=== PATIENT | female | born 1935 | race African-American/Black ===

== ENCOUNTER 2016-09-25 15:50 | Inpatient (IN) | payer OTHER ==
--- NOTE | ~2016-09-25 | DS ---
Unit #: [id number] #: [id number] Patient: STONE BOGGS [id number] [address] [place], [place] [address] [id number] I MR#: [id number] NAME: STONE BOGGS. ROOM: 474 Age: 81 Sex: F Admission Date: 09/25/2016 : 1935 Discharge Date: 10/13/2016 Attending Physician: Юлия Cleveland M.D. Primary Care Physician: Jonas Rodrigues M.D. DISCHARGE SUMMARY ADDENDUM Of note, since the last dictated addendum, the patient was denied rehab by her insurance and it was decided that the patient's denial was upheld by her insurance. Since that time, the patient's kidney functions have been fluctuating. Her creatinine have gone from 1.4 to the highest of that 2.8 with titration should improve. The patient does have diarrhea. I believe that this is due to the patient's recent colectomy possibly with the short gut symptom. At this time, we are treating the diarrhea symptomatically. C diff was checked, which was negative and she states that with Lomotil for symptomatic relief, she is able to tolerate the diarrhea much better. At this time, the patient's creatinine is 1.6. She is I believe medically stable. When the patient's family bought the insurance denial paper working. We came to find out the patient's entire hospitalization has been denied. Her acute hospitalization was denied by her insurance. When I had done, the physician on the insurance side told me that he had concerned that this is safe 81-year-old female, who was anemic and thought that the patient was not stable and she had symptoms of tiredness and shortness of breath and it was thought that may be the patient was not ready to be discharged home with home health. Of note, the patient's admitting hemoglobin was 5.4 which was critically low. We have worked this up with endoscopy which was negative and upper endoscopy, but declined. The patient had a colonic mass due to her severe anemia. 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 Also, there is focal hyperplastic mucosal change of the vermiform appendix and this final report will be attended by pathology when that is available. Dr. Fitzgerald of Oncology has seen the patient and states due to her advancing age, she can have it for any working needs, but he has no plans for chemotherapy at this time. Following the surgery, she has had extensive blood loss anemia resulting acute kidney injury. Nephrology has been following her with us. With IV fluid hydration and replacement of the anemia, her creatinine had improved. At this time, she also has ongoing diarrhea which again is negative for C diff. I believe that the patient has reached the maximal hospital benefit stay and she can be discharged home in stable condition. Follow up with primary care physician in next week to have repeat BMP done there to assess on her kidney function. She will follow up with [facility] in 10 to 14 days, follow up with Dr. Jalloh within 4 weeks, follow up with Dr. Fitzgerald in 3 to 4 weeks. She will have PNA to continue to work on her with PT/OT and Speech Therapy. DISCHARGE MEDICATIONS Unit #: [id number] #: [id number] Patient: STONE BOGGS Include sodium bicarbonate 1300 mg orally t.i.d. daily and given her prescription for two weeks. She is to stop the olmesartan and hydrochlorothiazide that she was using before. We have to change her antidepressant from sertraline to Cymbalta 30 mg orally daily. She can have Lomotil 5 mg orally for 4 days as needed for diarrhea, BuSpar 15 mg orally daily as needed, Tenormin 10 mg orally daily, lovastatin 20 mg orally at bedtime, clonidine 0.1 mg orally every 8 hours, hydralazine 100 mg orally every 8 hours, minoxidil 10 mg orally daily, Lantus 20 units subcutaneously at bedtime, NovoLog low-dose sliding scale prior to meals and at bedtime, Florastor 250 mg orally b.i.d., Tums 1000 mg t.i.d., folic acid 1 mg orally daily, calcitriol 0.25 mcg orally daily, vitamin D 2000 units orally daily. This dictation took 45 minutes include the patient's care, patient educated to her and her daughter, Ms. Shrestha as well as to coordinate care. Dictated by... Tejal Salter PA-C for Jimmy Donaldson/marcela TD: 10/14/2016 09:02 JOB #: [id number] DISCHARGE SUMMARY Page 1 of 1 X X DISCHARGE SUMMARY
--- NOTE | ~2016-09-25 | CR63 ---
[facility] A Service of [facility] RADIOLOGY TEXT RESULTS PATIENT: STONE BOGGS LOCATION: [facility] 474 : 37 UNIT #: [id number] AGE: [address]: Юлия Cleveland MD SEX: F ORDER DR: [id number] [facility] [address] [place], [place] [address] [id number] I MR#: [id number] Acc #: [id number] NAME: STONE BOGGS : 1935 SEX: F STUDY DATE/TIME: 10/13/2016 13:39 UNIT: [facility] ROOM: [facility] STUDY DESCRIPTION: CR Chest 2 View Attending Physician: Юлия Cleveland M.D. Ordering Physician: Юлия Cleveland M.D. Primary Care Physician: Jonas Rodrigues M.D. MEDICAL IMAGING REPORT This report is preliminary unless electronic signature is present EXAM Chest 2 views, 10/13/2016 1338 hours HISTORY Anemia with shortness of air since 09/25/2016. COMPARISON 10/10/2016 FINDINGS Upright PA and lateral views demonstrate moderate cardiac enlargement, unchanged. Tortuous aorta is stable. There is a fairly large right pleural effusion, unchanged. Lungs appear clear and there is no definite left effusion. IMPRESSION Stable cardiac enlargement and moderate size right pleural effusion. No appreciable change from 10/10/2016. Dictated by... Yulisa Calvillo M.D. THIS IS AN ELECTRONICALLY VERIFIED REPORT Yulisa Calvillo M.D. at 10/13/2016 6:55 PM MIKE/jose TD: 10/13/2016 17:57 JOB #: [id number] MEDICAL IMAGING REPORT COPY
--- NOTE | ~2016-09-25 | EKG ---
PATIENT: STONE BOGGS UNIT #: [id number] Ventricular Rate: 68 BPM Atrial Rate: 68 BPM P-R Interval: 150 ms QRS Duration: 86 ms Q-T Interval: 476 ms QTC Calculation(Bezet): 506 ms P [place]: 70 degrees Calculated R [place]: 34 degrees Calculated T [place]: 41 degrees Diagnosis Line: Normal sinus rhythm Diagnosis Line: Nonspecific T wave abnormality Diagnosis Line: Prolonged QT Diagnosis Line: Abnormal ECG Diagnosis Line: When compared with ECG of 17-JUN-2016 14:33, Diagnosis Line: T wave inversion less evident in Lateral leads Diagnosis Line: Confirmed by CYNTHIA MYLES MD ([id number]) on 09/27/2016 Diagnosis Line: 5:51:55 PM INTERPRETING MD: SHAMEKA STUBBS
--- NOTE | ~2016-09-25 | CO ---
Unit #: [id number] #: [id number] Patient: STONE TAVERAS [id number] [address] [place], [place] [address] [id number] I MR#: [id number] NAME: STONE TAVERAS ROOM: [facility] Age: 81 Sex: F Admission Date: 09/25/2016 : 1935 Attending Physician: Юлия Cleveland M.D. Primary Care Physician: Jonas Rodrigues M.D. Consultation Date: 09/26/2016 CONSULTATION REPORT PRIMARY CARE PHYSICIAN Jonas Rodrigues M.D. REASON FOR CONSULTATION Severe iron-deficiency anemia. HISTORY OF PRESENT ILLNESS Ms. Taveras is a very pleasant 81-year-old female. The patient was seen by Dr. Rodrigues recently and had presented with increasing fatigue, shortness of breath on exertion, and found to have a hemoglobin of 5.5, with iron indices compatible with severe iron deficiency. The patient denies any history of overt GI bleed in the form of hematemesis, melena, or hematochezia. She also denies taking frequent wbgb-fpj-bfvjjlu NSAIDs. PAST MEDICAL HISTORY Significant for history of restless legs syndrome, sleep apnea, and history of iron-deficiency anemia in the past. The only recent surgery is left elbow olecranon mass resection surgery. MEDICATIONS At home included aspirin, Tylenol, and an antacid pill for the stomach. ALLERGIES She has no known drug allergies. SOCIAL HISTORY Does not smoke or drink alcohol. Lives independently. She does not drive. Her daughter helps with the outdoor chores. FAMILY HISTORY None of colon, pancreatic cancer, or liver disease. REVIEW OF SYSTEMS Detailed review of organ systems does not reveal any recent weight loss. No history of fever, chills, or rigors. No history of headache, seizures, chest pain, or syncope. No history of cough, expectoration, or hemoptysis. There is history of shortness of breath on minimal exertion. No history of dysuria, hematuria, or pyuria. No history of focal seizures or extremity weakness. No history of overt GI bleed in the form of hematemesis, melena, or hematochezia. No history of skin rash, aphthous ulcer in the mouth, or reactive arthritis. Unit #: [id number] #: [id number] Patient: STONE TAVERAS PHYSICAL EXAMINATION GENERAL: She is alert and oriented, and appears comfortable. VITAL SIGNS: Stable with a temperature of 97.8, pulse is 63 per minute and regular, respirations 16, and blood pressure is 199/89. She weighs 160 pounds. Her baseline weight three years ago was 200 pounds. HEENT: She has moderate pallor. There being no icterus, lymphadenopathy, and grade 1 pitting peripheral edema. CARDIOVASCULAR: Normal heart sounds. No murmurs on auscultation. LUNGS: Reveal normal breath sounds. Good air entry. ABDOMEN: Soft and nontender. Liver and spleen are not palpable. Bowel sounds normal. DIAGNOSTIC STUDIES LABORATORY RESULTS: Shows a hemoglobin of 5.4 with the hypochromic microcytic red cell indices. White count is 3.8, platelet count is 178. Serum chemistry shows a BUN and creatinine of 25 and 1.3. Glucose of 108. Her iron studies indicate virtually no iron reserves, with iron and transferrin saturation in single digits and high TIBC. Ferritin is 12. CLINICAL IMPRESSION The patient with severe iron-deficiency anemia. The differential diagnosis includes angiodysplasias of the gastrointestinal tract, peptic ulcer disease, and colorectal neoplasia. An upper endoscopy and a colonoscopy is warranted to be scheduled later today after the prep. The pros and cons of procedure, potential risks, and complications were discussed with the patient and she was reassured. Thank you for asking me to see this pleasant woman. I appreciate the consult. Dictated by... Jimmy Wadsworth/marcela TD: 09/28/2016 14:42 JOB #: [id number] CC: Bri Santos M.D. CONSULTATION REPORT X Mitchell Castillo MD X CONSULTATION REPORT
--- NOTE | ~2016-09-25 | FU ---
[facility] Nutrition Therapy DATE: 10/13/16 Patient: STONE Hager AMBROSE Physician: RO Address: [address] [place] [address] Room/Bed: [address] [place] [address], Zip: [place] [address] Admit Date: 09/25/16 Date of : 37 Height: 5 5 Weight: 158 72 NUTRITION MONITORING/FOLLOW-UP: Reason: PT SEEN FOR FOLLOW-UP DX: ANEMIA, TRA Anthropometrics: 5'5", WT: 158# ( 72 KG) (09/29/16), BMI: 26.3 -ADMIT WEIGHT: 163# (74 KG) Labs: GLU: 147, BUN: 50, CREAT: 1.6, CA+:6.3, ALB: 3.1, M.2 (10/03/16), GFR: 40 Meds: TUMS, VITAMIN D, LEVEMIR, NOVOLOG, KCL, ZOFRAN, FOLIC ACID, LIPITOR I&O's: 2065/1601, 1 BM NOTED Skin: NO ISSUES NOTED EDEMA: BLE TRACE EDEMA Estimated Nutrition Needs: INCREASED NUTRIENT NEEDS Assessment: CHART REVIEWED AND EVENNTS NOTED. PT SEEN FOR FOLLOW-UP. PT OUT OF ROOM FOR X-RAY PROCEDURE AT TIME OF VISIT. FAMILY IN ROOM REPORT PT'S APPETITE "COMES AND GOES", FAIR PO INTAKE, NOTING NO C/O N/V/D. FAMILY REPORTS PT TO HAVE INTERMITTENT DYSPHAGIA. FAMILY ADDS THAT PT DRINKS GLUCERNA SHAKES + ENJOYS THE MAGIC CUP BID. THIS RD ENCOURAGED ADEQUATE KCAL AND PROTEIN INTAKE, FAMILY AGREED. PT REPORTED NO DIET QUESTIONS AT THIS TIME. RD TO CONTINUE TO FOLLOW. Dx: INADEQUATE PROTEIN-ENERGY INTAKE R/T CURRENT CLINCAL CONDITION, POSSIBLE DYSPHAGIA AEB PT REPORT OF POOR PO INTAKE-IN PROGRESS. Intervention: 1. PUREED DIET 2. STRAW GLUCERNA SHAKES BID 3. ZOIE MAGIC CUP BID Monitoring, Evaluation and Goals: GOALS NOT MET 1. PO INTAKE; CONSUME >50% OF MEALS W/NO C/O N/V/D 2. WEIGHTS; PROMOTE WEIGHT MAINTENANCE 3. LABS; WNL 4. GI; PROMOTE REGULAR GI FUNCTION MONITOR: -PO INTAKE/APPETITE -WEIGHTS -SUPPLEMENT INTAKE [facility] Therapy DATE: 10/13/16 Patient: STONE BOGGS Physician: RO Address: [address] [place] [address] Room/Bed: [address] [place] [address], Zip: [place] [address] Admit Date: 09/25/16 Date of : 37 Height: 5 5 Weight: 158 72 Recommendations: 1. 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 PLEASE PROVIDE UPDATED WEIGHT FOR MONITORING PURPOSES RD WILL F/U PER PROTOCOL PT IS MODERATELY COMPROMISED Respectfully, MARIE VILA MS, RD, LD [facility] cc: client file
--- NOTE | ~2016-09-25 | OR ---
Unit #: [id number] #: [id number] Patient: STONE BOGGS [id number] [address] [place], [place] [address] [id number] I MR#: [id number] NAME: STONE BOGGS. ROOM: [facility] Date of Procedure: 09/29/2016 Admission Date: 09/25/2016 Surgeon: Yair Garcia M.D. : 1935 Attending Physician: Refugio Simms M.D. Primary Care Physician: Jonas Rodrigues M.D. OPERATIVE REPORT PREOPERATIVE DIAGNOSIS Right colon cancer. POSTOPERATIVE DIAGNOSIS Right colon cancer. PROCEDURES PERFORMED 1. Exploratory laparotomy. 2. Right hemicolectomy. POWER LINEMAN TECHNICIAN Crady. ANESTHESIA General endotracheal anesthesia. ESTIMATED BLOOD LOSS 50 mL. IV FLUIDS 900 crystalloid. COMPLICATIONS None. INDICATIONS FOR PROCEDURE The patient is a 81-year-old lady with colon cancer and partial obstruction. She presents for operative management. DESCRIPTION OF PROCEDURE The patient was taken to the operating theater and placed in supine position. General anesthesia was induced. Her abdomen was prepped and draped. A midline incision was then made. The abdominal cavity was entered without difficulty. General inspection of the abdomen revealed tumor just proximal to the cecum partial obstructing. There was minimal dilatation of the proximal bowel. The remaining colon appeared normal. Small bowel appeared to be normal. I did not see any evidence of metastatic lesions. The liver was normal. I began mobilizing the retroperitoneal attachments of the right colon. I then took down the hepatic flexure. I fired a INDIRA stapler across the terminal ilium as well as the ascending colon-right colon junction. This gave good margins around the tumor. I then took down the mesentery with 0 silk suture. I Unit #: [id number] #: [id number] Patient: STONE BOGGS then created a wjae-ii-jfrz anastomosis using a INDIRA stapler. The enterotomy was then closed with a INDIRA stapler in a linear fashion. I oversewed with 3-0 silk. The mesenteric defect was then closed with silk. The bowel was then placed back in the right upper quadrant. I irrigated thoroughly with normal saline and aspirate all fluids dry. The fascia was then closed with 0 Vicryl and skin with stephanie. The patient tolerated the procedure well and sent to recovery room in good condition. Dictated by... Jimmy Hall/marcela TD: 09/30/2016 06:21 JOB #: [id number] OPERATIVE REPORT X Yair Garcia MD X PROCEDURE OPERATIVE NOTE
--- NOTE | ~2016-09-25 | DS ---
Unit #: [id number] #: [id number] Patient: STONE BOGGS [id number] [address] [place], [place] [address] [id number] Chanell MR#: [id number] NAME: STONE BOGGS ROOM: 474 Age: 81 Sex: F Admission Date: 09/25/2016 : 1935 Discharge Date: Attending Physician: Юлия Cleveland M.D. Primary Care Physician: Jonas Rodrigues M.D. DISCHARGE SUMMARY ADDENDUM HOSPITAL COURSE Since 3 days ago the patient was discharged to [facility] for continued physical and occupational therapy, but we have been awaiting insurance approval due to the patient's reduced energy level and unwillingness to work with physical and occupational therapy. Through encouragement, the patient is now able to participate more with therapy. We also have stopped the patient's Ativan and her pain medicine. Really and truly it was the Ativan that was making the patient very somnolent and giving her less energy to participate with therapy. I found the patient was on oxygen during my assessment, and she states that she does not use home oxygen chronically. When asked to be weaned off of oxygen, per the nursing staff, the patient would desaturate to 88% to 89%. I find no evidence of fluid overload, no symptoms of dyspnea. Lung exam was unremarkable. Therefore, I have assessed a two-D echo, transthoracic echocardiogram, which reveals that the patient does have normal systolic function with a predicted ejection fraction of 60% to 65%. She does have moderate concentric left ventricular hypertrophy, but most notable was that the patient does have right ventricular systolic pressure of 80 mmHg, consistent with severe pulmonary hypertension. I suspect that the patient has had chronic respiratory failure due to her severe pulmonary artery hypertension, but again, I do not find any evidence of acute COPD exacerbation, no evidence of pneumonia, no evidence of fluid overload, and the patient likely has had chronic respiratory failure but was actually never diagnosed until she has been here in this hospital. At this time the patient is stable. She can be discharged to [facility] for continued physical and occupational therapy, as she is participating with therapy at this time. At this time BMP with glucose of 138, BUN 41, creatinine 2.1, sodium 136, potassium 4, chloride 109, CO2 19, calcium 6.5, phosphorous 5.2, magnesium 2.2, total protein 6.3, albumin 3.3, total bilirubin 1.1. CBC with WBC of 11.6, RBC 4.49, hemoglobin 12.4, hematocrit 38.3, MCV 85.2, MCH 26.8, MCHC 31.4, RDW 21, platelets 203, MPV 10.4. Per nephrology's recommendations, the patient can have a BMP and H and H on Thursday and while she is at the halfway facility for the next 4 weeks. These results can be called back to Dr. Jalloh's office, as they are following her for her renal function. She can follow up with them in their office per their request in 4 weeks. She can follow up Unit #: [id number] #: [id number] Patient: STONE BOGGS with Dr. Fitzgerald, her oncologist, in 2 weeks. Of note, the patient's final pathology report is pending, but at this time there is evidence of cancer in the appendix, as well, and she can have planning and assessment with Dr. Fitzgerald. DISCHARGE CONDITION Stable. DISCHARGE DIET Pureed with consistent carb, per the patient's request, as she was found to have no dysphagia per speech therapy, as well as Glucerna strawberry b.i.d. with meals and (1) Magic Cup twice daily. ACTIVITY Continue activity with PT, OT and speech therapy. DISCHARGE MEDICINES 1. Tylenol 325 mg q.4 hours as needed for mild pain. 2. We are not continuing her olmesartan or Hydrochlorothiazide home usage. 3. Cymbalta 30 mg orally daily. 4. Zoloft 100 mg orally daily. 5. BuSpar 15 mg orally daily. 6. Norvasc 10 mg orally every morning. 7. Tenormin 10 mg orally daily. 8. Lovastatin 20 mg orally at bedtime. 9. Clonidine 0.2 mg t.i.d. 10. Hydralazine 10 mg orally t.i.d. 11. Minoxidil 10 mg orally b.i.d. 12. Currently she is getting Levemir 20 units subcutaneously at bedtime. 13. She can have NovoLog 5 units subcutaneously t.i.d. with meals, as well as low-dose sliding scale insulin prior to meals and at bedtime. 14. Folic acid 1 mg orally daily. 15. Vitamin B12 - 1,000 mcg orally daily. Dictated by... Tejal Salter PA-C for Jimmy oDnaldson TD: 10/09/2016 11:33 JOB #: [id number] DISCHARGE SUMMARY X X DISCHARGE SUMMARY
--- NOTE | ~2016-09-25 | CR63 ---
[facility] A Service of [facility] RADIOLOGY TEXT RESULTS PATIENT: STONE BOGGS LOCATION: [facility] 474 : 37 UNIT #: [id number] AGE: [address]: Юлия Cleveland MD SEX: F ORDER DR: [id number] [facility] [address] [place], [place] [address] [id number] I MR#: [id number] Acc #: [id number] NAME: STONE BOGGS. : 1935 SEX: F STUDY DATE/TIME: 10/10/2016 12:54 UNIT: [facility] ROOM: [facility] STUDY DESCRIPTION: CR Chest 2 View Attending Physician: Юлия Cleveland M.D. Ordering Physician: Юлия Cleveland M.D. Primary Care Physician: Jonas Rodrigues M.D. MEDICAL IMAGING REPORT This report is preliminary unless electronic signature is present EXAM 2 view chest, 10/10/2016. DATE OF EXAM 10/10/2016 INDICATIONS 81-year-old female with history of anemia, shortness of air symptoms since 09/25/2016. No surgeries. Hypertension. REPORT Frontal and lateral views of the chest were performed. COMPARISON 10/06/2016 FINDINGS Exam degraded by body habitus. The heart is enlarged but stable. Lung volumes are low. There has been improvement in vascular congestion. There is a right-sided effusion with atelectasis or pneumonia involving the mid and lower lung zone on the right. There is some residual asymmetric atelectasis, edema or infiltrate in the mid and upper lung zones on the right. No pneumothorax. There is thoracic spondylosis. IMPRESSION 1. Cardiomegaly with interval improvement in vascular congestion. 2. Right-sided effusion with compressive atelectasis or pneumonia in the right lung base. 3. Residual interstitial prominence in the mid and upper lung zone on the right which may reflect residual edema atelectasis or infiltrate. No pneumothorax. [facility] A Service of [facility] RADIOLOGY TEXT RESULTS PATIENT: STONE BOGGS LOCATION: [place] [id number] : 37 UNIT #: [id number] AGE: [address]: Юлия Cleveland MD SEX: F ORDER DR: Dictated by... Tristin Abbasi M.D. THIS IS AN ELECTRONICALLY VERIFIED REPORT Tristin Abbasi M.D. at 10/10/2016 5:37 PM ASHOK/allison TD: 10/10/2016 17:32 JOB #: [id number] MEDICAL IMAGING REPORT COPY
--- NOTE | ~2016-09-25 | CT4 ---
[facility] A Service of [facility] & [facility] RADIOLOGY TEXT RESULTS PATIENT: STONE BOGGS LOCATION: [facility] [address] : 37 UNIT #: [id number] AGE: [address]: Refugio Simms MD SEX: F ORDER DR: [id number] [facility] [address] [place], [place] [address] [id number] I MR#: [id number] Acc #: [id number] NAME: STONE BOGGS : 1935 SEX: F STUDY DATE/TIME: 10/01/2016 10:33 UNIT: [facility] ROOM: [facility] STUDY DESCRIPTION: CT Abd and Pelv Wo Cont Attending Physician: Refugio Simms M.D. Ordering Physician: Keyana Fitzgerald M.D. Primary Care Physician: Jonas Rodrigues M.D. MEDICAL IMAGING REPORT This report is preliminary unless electronic signature is present EXAM CT abdomen and pelvis without contrast INDICATIONS Anemia. Gastrointestinal bleeding. Generalized abdominal pain since Thursday. PROCEDURE Unenhanced CT of the abdomen and pelvis. This CT exam was performed with one or more of the following radiation dose reduction techniques: automatic exposure control, adjustment of mA and/or kV according to patient size, and iterative reconstruction. COMPARISON 09/27/2016 FINDINGS Abdomen with contrast: Bibasilar opacities probably representing atelectasis but infiltrate is not excluded. Coronary artery calcification with cardiomegaly. Abdomen without contrast: The liver, spleen, kidneys, adrenal glands, pancreas show no definite acute abnormality. There is a nonspecific low-attenuation region in the head of the pancreas that measures up to 1.9 cm. It is incompletely evaluated on this study. There is scattered fluid throughout the abdomen and pelvis. Within the fluid are scattered areas of high attenuation, most notable in the right mid and lower abdomen. Largest area measures approximately 12.3 x 4.3 cm. There is also some hemorrhage tracking superiorly along the liver. There is a midline abdominal incision. Pelvis without contrast: Fluid extends into the pelvis. There is a Aguilera catheter in place. No aggressive appearing bone lesion. [facility] A Service of [facility] & [facility] RADIOLOGY TEXT RESULTS PATIENT: STONE BOGGS LOCATION: [place] [address] : 37 UNIT #: [id number] AGE: [address]: Refugio Simms MD SEX: F ORDER DR: IMPRESSION 1. Fluid throughout the abdomen and pelvis some of which has very high attenuation in keeping with hemorrhage. The largest or more concentrated areas are in the right midabdomen and right lower quadrant. 2. Bibasilar opacity and trace effusions. Opacity probably represents atelectasis but infiltrate is not excluded. 3. Nonspecific low-attenuation region of the head of the pancreas. It is not well characterized on this study. Findings called to the patient's nurse at the time of this dictation. Dictated by... Nato Luis M.D. THIS IS AN ELECTRONICALLY VERIFIED REPORT Nato Luis M.D. at 10/02/2016 6:56 AM EED/renae TD: 10/01/2016 13:33 JOB #: [id number] MEDICAL IMAGING REPORT COPY
--- NOTE | ~2016-09-25 | CO ---
Unit #: [id number] #: [id number] Patient: STONE TAVERAS [id number] [address] [place], [place] [address] [id number] MR#: [id number] NAME: STONE TAVERAS ROOM: [facility] Age: 81 Sex: F Admission Date: 09/25/2016 : 1935 Attending Physician: Refugio Simms M.D. Primary Care Physician: Jonas Rodrigues M.D. Consultation Date: 10/01/2016 CONSULTATION REPORT REASON FOR CONSULTATION Renal insufficiency and hypertension. Thank you very much for asking us to see this patient again in consultation. HISTORY OF PRESENT ILLNESS Ms. Taveras is a very pleasant 81-year-old female, who I have seen in the office who has chronic kidney disease, stage 3 with creatinine in the mid 1s, who has had severe hypertension in the past, who in 2010 had an arteriogram showing 30% to 40% renal artery stenosis on the left and none on the right. She has had several renal artery duplex scans after that and showed no significant narrowing of arteries, although she has had continued blood pressure problems and on minoxidil at home, who has been real anemic and underwent a colonoscopy and found to have a colon mass and she underwent a right hemicolectomy on 09/29/2016. The patient upon admission had a creatinine of 1.3, it was up to 1.5 two days ago, it was up to 1.9 yesterday. Because of this, I was asked to see the patient. The patient's, again creatinine baseline has realistically been running around 1.5 +/-. She currently is still sore. She is not having any nausea or vomiting, any chest pain, any shortness of breath. She did have a CT scan of the abdomen and pelvis prior to surgery and incidental from the renal standpoint, it showed a left exophytic area and possible complex cyst versus mass which was not there on previous renal ultrasounds. PAST MEDICAL HISTORY History of chronic kidney disease, stage 3; history of anemia; history of colon CA, now status post right hemicolectomy on 09/29/2016; history of diabetes mellitus; history of severe hypertension; history of gastroesophageal reflux disease; status post left elbow olecranon mass surgery; history of obstructive sleep apnea; history of restless legs syndrome; history of arthritis. Denies any nonsteroidals. Status post thyroid surgery. ALLERGIES No known drug allergies. SOCIAL HISTORY She is . Previous smoker, none in at least 12 to 13 years. No significant alcohol use. FAMILY HISTORY Positive for hypertension and heart disease. Unit #: [id number] #: [id number] Patient: STONE TAVERAS MEDICATIONS At home included hydralazine 100 mg t.i.d., minoxidil I believe she was supposed to be on either 10 mg once a day or b.i.d. I am unsure at this point, insulin, sodium bicarbonate, Benicar and hydrochlorothiazide 40/25, aspirin, BuSpar, Zoloft, insulin, atenolol 100 mg a day, clonidine-TTS three patch weekly, iron pill, fenofibrate. Here, she is on Norvasc 5 mg, Tenormin 100, insulin, folic acid, hydralazine, Catapres patch, Lipitor, Zoloft, Ativan, and BuSpar. REVIEW OF SYSTEMS As mentioned in the HPI, otherwise negative. PHYSICAL EXAMINATION GENERAL: She is alert and oriented. VITAL SIGNS: Temperature is 98.4; pulse 66 to 76; blood pressure is 175 to 200/54 to 71, currently 85/54. HEENT: Normocephalic and atraumatic. Pupils are equal, round, and reactive to light. Extraocular muscles are intact. Hearing appears to be normal. Mouth is clear. No erythema. No exudate. NECK: Supple. No JVD. No adenopathy. CARDIAC: She has a regular rhythm without a rub. No S3 or S4. LUNGS: Clear bilaterally. No wheezes, rhonchi, or rales. ABDOMEN: Mildly distended. Midline incision stephanie present. EXTREMITIES: No lower extremity swelling. Pulses are intact in upper and lower extremities. JOINTS: No joint pain or joint swelling. SKIN: No acute rashes. NEUROLOGIC: Appears to be intact motor and sensory grossly. : Aguilera catheter is in place. DIAGNOSTIC STUDIES IMAGING STUDIES: CT scan as mentioned above. LABORATORY RESULTS: Her sodium is 149 today. Potassium of 3.7, chloride was 120, bicarb was 24, BUN of 24, creatinine of 1.9 and these were actually yesterday. Glucose is 184, calcium 6.8, albumin is 3.3. Hemoglobin is 8.8, white count 9800, and platelets 103,000. ASSESSMENT AND PLAN 1. Acute on chronic kidney disease, stage 3. The patient with some increased creatinine. Certainly, it is probably combination of acute tubular necrosis and possible volume depletion. I agree with hydration, although we will change her fluids as we mentioned below. Continue to keep her off her angiotensin receptor john and diuretic for now, but probably restart once her renal function stabilizes. We will check a UA culture and sensitivity. Check urine eosinophils and random urine sodium. We will follow. 2. Questionable left renal complex cyst versus mass, which was not present on previous ultrasounds. We will probably consider doing MRI once everything improves and stabilizes to make sure this is not some sort of liver or kidney lesion. 3. Hypertension. Blood pressure is elevated. We will restart minoxidil and continue to follow trends. 4. Hyponatremia. We will change her fluids to half-normal saline for now, and we will recheck in a.m. Although, labs today are pending and I have asked them to give me a call. Unit #: [id number] #: [id number] Patient: STONE TAVERAS Dictated by... Jimmy Schuster/marcela TD: 10/02/2016 02:06 JOB #: [id number] CONSULTATION REPORT X Keo Jalloh MD X CONSULTATION REPORT
--- NOTE | ~2016-09-25 | HP ---
Unit #: [id number] #: [id number] Patient: STONE BOGGS [id number] [facility] [address] [place], [place] [address] [id number] I MR#: [id number] NAME: STONE BOGGS. ROOM: 322 Age: 81 Sex: F Admission Date: 09/25/2016 : 1935 Attending Physician: Bri Santos M.D. Primary Care Physician: Jonas Rodrigues M.D. HISTORY AND PHYSICAL REASON FOR ADMISSION Decreased hemoglobin. HISTORY OF PRESENT ILLNESS The patient is a very pleasant 81-year-old female who tells me that she saw her primary care physician recently, underwent routine laboratory studies, was notified that her hemoglobin was approximately 5.5 and subsequently was instructed to come to the emergency room for further evaluation. She tells me that over the past several days, she has had increased dyspnea on exertion as well as marked fatigue. She also tells me back in March 2016 she underwent routine laboratory studies and was noted to have a hemoglobin of 7 and was instructed to be on p.o. iron at that time but a recheck was recently done only several days prior. She was evaluated as an outpatient on 06/17/2016 for left elbow olecranon mass and saw Dr. Heart and underwent an outpatient procedure, otherwise there are no previous hospital admissions in our particular system here at [facility]. She also tells me over the past 10 years she has never been formally admitted to any particular hospital here in [place]. She tells me the last time she underwent a colonoscopy and/or upper GI endoscopy was probably six to eight years ago and, per her recollection, it was normal. She has been told in the past that she has a varying amount of gastritis and/or reflux but she has never been told any other diagnosis. She is not sure what her baseline hemoglobin is, she only states that she has had issues off and on with her decreased iron. Also, approximately a year ago, she underwent outpatient IV iron infusion but she does not recall at that particular time her hemoglobin level. PAST MEDICAL HISTORY 1. Recent left elbow olecranon mass surgery. 2. Prior history of anemia, I believe iron deficiency in origin. 3. Sleep apnea. 4. Restless leg syndrome. HOME MEDICATIONS Current home medications are being verified and include: 1. Aspirin. 2. Tylenol. 3. Stomach acid pill (currently does not recall). Unit #: [id number] #: [id number] Patient: STONE BOGGS ALLERGIES No known drug allergies. SOCIAL HISTORY No alcohol use, no tobacco use. Patient denies any illicit drug use. She resides at home with her two dogs. FAMILY HISTORY Reviewed, noncontributory, not pertinent. REVIEW OF SYSTEMS Please see HPI. 12 points otherwise negative except for those positives noted in the HPI. PHYSICAL EXAMINATION VITAL SIGNS: Currently being assessed. GENERAL: This is a 81-year-old female lying comfortably in no acute distress. HEAD: Atraumatic, normocephalic. EARS: Tympanic membranes do not reveal any erythema or injection. NECK: Supple. HEART: S1, S2 without murmur. LUNGS: Clear. ABDOMEN: Nontender, nondistended. LOWER EXTREMITIES: No evidence of any lower extremity edema. No calf tenderness. NEUROLOGIC: Alert and oriented x3. No evidence of any focal neurologic deficits. INITIAL ADMISSION DIAGNOSES 1. Symptomatic anemia. 2. Weight loss 20 pounds times 6 to 8 weeks. 3. Symptomatic anemia symptoms including fatigue and dyspnea. 4. Prior history of obstructive sleep apnea. 5. Hypertension. 6. Gastroesophageal reflux disease. PLAN 1. Admission to telemetry floor. 2. Type and cross and transfuse 2 units. 3. Protonix drip. 4. Gastroenterology consultation. 5. N.p.o. after midnight. 6. Upper GI endoscopy likely in the a.m. 7. CT abdomen and pelvis to ascertain or rule out possible underlying malignancy. Certainly, in regard to her unintentional weight loss that she has had and especially in regard to her decreased hemoglobin certainly carcinoma is of prior concern. 8. We will follow up with routine labs and symptom treatment and/or further hospital course to follow. Dictated by Юлия Cleveland M.D. Unit #: [id number] #: [id number] Patient: STONE BOGGS JOSE ARMANDO/rito TD: 09/25/2016 22:14 JOB #: [id number] HISTORY AND PHYSICAL X Юлия Cleveland MD HISTORY AND PHYSICAL
--- NOTE | ~2016-09-25 | OR ---
Unit #: [id number] #: [id number] Patient: STONE TAVERAS [id number] [address] [place], [place] [address] [id number] I MR#: [id number] NAME: STONE TAVERAS ROOM: [facility] Date of Procedure: 09/27/2016 Admission Date: 09/25/2016 Surgeon: Mitchell Castillo M.D. : 1935 Attending Physician: Юлия Cleveland M.D. Primary Care Physician: Jonas Rodrigues M.D. OPERATIVE REPORT ADDITIONAL ATTENDING PHYSICIAN Bri Santos M.D. PRIMARY CARE PHYSICIAN Jonas Rodrigues M.D. PREOPERATIVE DIAGNOSIS Severe iron-deficiency anemia. PROCEDURES PERFORMED Upper gastrointestinal endoscopy and biopsy as well as colonoscopy with biopsy, colonoscopy with polypectomy, and colonoscopy with submucosal injection. POSTOPERATIVE DIAGNOSES For upper endoscopy: The patient had mild prepyloric antral erosive gastritis. Otherwise, examination was normal up to third part of duodenum. Biopsies were obtained from the antrum for CLOtest. For colonoscopy: 1. The patient had a large multilobulated completely obstructing mass in the distal ascending colon near the hepatic flexure. The lumen was impossible to cannulate in this area, because of the mass completely obstructing the lumen. Appropriate biopsies were obtained for histology. In addition, the surrounding mucosa was tattooed using Nicolasa ink. 2. The patient also had multiple polyps along the way. Three of these polyps were removed from the transverse colon and sent for histology after polypectomy. 3. Moderately severe sigmoid and descending colon diverticulosis. 4. Rest of the examination up to the area of the tumor was normal. RECOMMENDATIONS Detailed discussion was held with the patient as well as telephonic call was made to her daughter, Tiffanie Taveras regarding the fact that the patient has totally obstructed the right colon and needs an extended right hemicolectomy in order to relieve the obstruction. She is already scheduled for a CAT scan of the abdomen and pelvis with Dr. Cleveland, and if this does not show any metastatic disease, then that would be the way to go. If however she has metastatic disease, she will still need a diversion stoma to help relieve the obstruction. Also, it is noteworthy her CEA level is 80. Unit #: [id number] #: [id number] Patient: STONE TAVERAS SEDATION USED Procedural sedation. DESCRIPTION OF PROCEDURE Following detailed explanation of the potential risks and complications of an upper endoscopy and a colonoscopy, namely perforation, bleeding, and complications related to sedation, the patient was brought to GI lab and laid in the left lateral decubitus position. Lubricated tip of the Olympus video upper endoscope was passed through the bite block into the proximal esophagus under direct vision. The entire esophageal mucosa was examined and appeared normal. Z-line was nicely demarcated, there being no esophagitis or hiatus hernia. The scope was then advanced into the gastric cavity and the latter was insufflated. Mucosa of the fundus, body, and antrum was examined. Lnkn-og-[id number] prepyloric antral erythema and focal patchy erosions were noted indicating antral gastritis. Pylorus was intubated with visualization of the normal duodenal bulb and second and third part of the duodenum. Upon withdrawal and retroflexion, incisura, cardia, and greater curve was examined and no additional findings were noted. A biopsy was obtained from the antrum for CLOtest. The scope was then withdrawn in the distal esophagus. Entire esophageal mucosa was examined all the way up to pharynx. No additional findings were noted. The examination table was then turned by 180 degrees and the patient positioned for a colonoscopy. A digital rectal examination was performed, which was normal. Lubricated tip of the Olympus video colonoscope was inserted through the anus and advanced under direct vision. The scope was advanced past rectosigmoid into descending colon. Multiple medium-sized diverticula were seen scattered in this area. In addition, fresh blood residue was also seen indicating recent bleeding. The scope tip was then navigated up to the area of the hepatic flexure, whereupon a large circumferential completely obstructing mass was seen filling the lumen in the area of the distal ascending colon. There was no way to intubate beyond this area. Multiple polyps were also seen along the way. Extensive biopsies were obtained from the obstructing mass and the surrounding mucosa was tattooed using Nicolasa ink. Three polyps were then removed from the transverse colon, retrieved and sent for histology. These were all sessile, ranging in size from 8 mm to 1.2 cm. No additional polyps were noted. Other than the left-sided diverticulosis, no other abnormalities were found. The patient did not have any hemorrhoids at the anal verge. It is noteworthy the patient had some fresh blood residue in the colon, most likely as a result of bleeding from the ascending colon mass. Dictated by.Jimmy Barrera/marcela TD: 09/27/2016 15:52 JOB #: [id number] Unit #: [id number] #: [id number] Patient: STONE TAVERAS OPERATIVE REPORT X Mitchell Castillo MD X PROCEDURE OPERATIVE NOTE
--- NOTE | ~2016-09-25 | CO ---
Unit #: [id number] #: [id number] Patient: STONE BOGGS [id number] [address] [place], [place] [address] [id number] I MR#: [id number] NAME: STONE BOGGS ROOM: [facility] Age: 81 Sex: F Admission Date: 09/25/2016 : 1935 Attending Physician: Юлия Cleveland M.D. Primary Care Physician: Jonas Rodrigues M.D. Consultation Date: 09/28/2016 CONSULTATION REPORT HISTORY OF PRESENT ILLNESS Ms. Boggs is a 81-year-old black female with a near obstructing right colon tumor in the right colon. She did take a bowel prep. This was found per endoscopy. It was tattooed and biopsied. We were asked to see her for right colectomy. She did come in with anemia and abdominal distention. ALLERGIES None. MEDICATIONS At home include Zoloft, BuSpar, Tenormin, insulin, lovastatin, Catapres, hydralazine, minoxidil. The patient is a hypertensive diabetic female as noted. PHYSICAL EXAMINATION GENERAL: Cooperative, alert black female. ABDOMEN: Slightly distended from her colonoscopy, but no peritoneal signs. No palpable bladder. No CVA tenderness. EXTREMITIES: Full range of motion for the patient's stated age. IMPRESSION This patient needs a right colectomy. Risks have been explained to the patient, she understands and we will proceed. Dictated by... Jimmy Conner/marcela TD: 09/28/2016 23:18 JOB #: [id number] CONSULTATION REPORT X Kirk Ding MD X CONSULTATION REPORT
--- NOTE | ~2016-09-25 | CR63 ---
[facility] A Service of [facility] & [facility] RADIOLOGY TEXT RESULTS PATIENT: STONE BOGGS LOCATION: [facility] [id number] : [birth year] UNIT #: [id number] AGE: [address]: Юлия Cleveland MD SEX: F ORDER DR: [id number] [facility] [address] [place], [place] [address] [id number] MR#: [id number] Acc #: [id number] NAME: STONE BOGGS : 1935 SEX: F STUDY DATE/TIME: 10/06/2016 11:22 UNIT: [facility] ROOM: [facility] STUDY DESCRIPTION: CR Chest 2 View Attending Physician: Юлия Cleveland M.D. Ordering Physician: Юлия Cleveland M.D. Primary Care Physician: Jonas Rodrigues M.D. MEDICAL IMAGING REPORT This report is preliminary unless electronic signature is present EXAM PA and lateral chest. INDICATION 81-year-old female with shortness of breath since 09/25/2016. FINDINGS There is a small right pleural effusion. Cardiomegaly. Prominent pulmonary vasculature. Atelectasis or consolidation in the right base. Visualized osseous structures are unremarkable. IMPRESSION Small right pleural effusion with atelectasis or consolidation in the right base. Cardiomegaly. Dictated by... Ken Tenorio M.D. THIS IS AN ELECTRONICALLY VERIFIED REPORT Ken Tenorio M.D. at 10/06/2016 4:58 PM XENIA/cheyenne TD: 10/06/2016 14:35 JOB #: [id number] MEDICAL IMAGING REPORT COPY
--- NOTE | ~2016-09-25 | TOC ---
Unit #: [id number] #: [id number] Patient: STONE BOGGS [id number] [facility]. [place], [place] [address] [id number] I MR#: [id number] NAME: STONE BOGGS ROOM: [facility] Age: 81 Sex: F Admission Date: 09/25/2016 : 1935 Attending Physician: Refugio Simms M.D. Primary Care Physician: Jonas Rodrigues M.D. TRANSFER OF CARE SUMMARY WORKING DIAGNOSES 1. Symptomatic anemia. 2. Colon adenocarcinoma, status post resection. 3. Acute blood loss anemia following surgery. The patient has received a total of 9 packed red blood cell transfusion and 6 fresh frozen plasma transfusions. 4. Acute kidney injury due to acute blood loss anemia. Eosinophils not present at this time. 5. Essential hypertension. I have added increased Norvasc to her home management. 6. Dysphagia following surgery. Unclear at this time. The patient does not seem to have aspirated. Speech therapy is working with her and will have video-guided speech swallow study when confirmed to surgery that she may have barium and that she can have a stable diet. 7. Prior history of obstructive sleep apnea. 8. Gastroesophageal reflux disease. 9. Type 2 diabetes. Accu-Cheks reveal blood sugar is controlled at this time. PROCEDURES PERFORMED 1. Upper gastroenterology endoscopy and colonoscopy by Dr. Castillo on 09/27/2016. Per the upper endoscopy the patient had mild prepyloric antral erosive gastritis. Normal exam up to the third of the duodenum. Per the colonoscopy the patient had large multilobulated complete obstructing mass in the distal ascending colon near the hepatic flexure. Biopsy was done for histology. The patient also had multiple polyps that were removed. Per the upper endoscopy, the urease was negative. 2. Following this the patient had right hemicolectomy done on 09/29/2016. Findings of right colon cancer. CONSULTANTS Dr. Castillo of gastroenterology. Dr. Ding and Dr. Asencio of [facility]. Dr. Fitzgerald with oncology. Dr. Jalloh of nephrology. HOSPITAL COURSE The patient is a pleasant 81-year-old female with a past medical history of anemia, essential hypertension, sleep apnea, restless leg. The patient was admitted to through the emergency department under routine laboratory findings that her hemoglobin was 5.5. Back in 03/2016 she had a hemoglobin of 7 and was instructed to start on iron tablets. The patient was admitted for symptomatic anemia with a 20 pound weight loss over the Unit #: [id number] #: [id number] Patient: BARD AMBROSEENIA A course of 6-8 weeks. She was seen in consultation with Dr. Castillo, who had done an upper and lower endoscopy to look for the source of anemia. She was found to have large completely obstructing mass in the distal ascending colon near the hepatic flexure. Therefore, [facility] was consulted and the patient then underwent right colectomy. Pathology from that revealed the patient has fragmented segments of tubular adenoma with focal high-grade dysplasia. Dr. Fitzgerald of oncology was consulted, given her newly diagnosed colon cancer. He states that she does have an elevated CA of greater than 80 and he had an extensive discussion with the patient and her 3 children. Given her age he will provide just supportive care and close surveillance. It is doubtful she would be able to tolerate any chemotherapy. With regard to anemia, we are giving her iron intravenously, folic acid, B12 to stimulate her bone marrow. Following surgery we found the patient had had significant blood loss anemia, found to be critically low on 10/01/2016 at 5.2. She has been having fluctuating blood counts. To date she has received a total of 9 units of packed red blood cells and 6 units of fresh frozen plasma. She did have a CT of the abdomen that was done on the and found fluid throughout the abdomen and pelvis, consistent with hemorrhage, largely concentrated on the right mid abdomen and right lower quadrant. Surgery is continuing to follow her. We are slowly advancing her liquid diet and transfusing her as needed. Due to the acute blood loss, she has had significant increase in her prerenal kidney injury with admitting creatinine of 1.3 and peaked highest at 3.4. Dr. Jalloh of nephrology is following her and is correcting her electrolytes for this, as well as hydrating her. Currently her creatinine is at 2.9. The patient was also noted to have odynophagia it seemed like, and she tells me that she did not have this problem prior to surgery. This may be due to her severe anemia and weakness. At this time she is on a full liquid diet and if surgery permits her to advanced to at least a mechanical soft diet, speech therapy will work with her with a video-assisted swallow to assess for any signs of dysphagia. At the moment she exhibits no signs of aspiration pneumonia. No elevated white count. No coughing symptoms. No temperature is noted. Therefore, we will keep her bed elevated and will monitor her. Lab work at this time reveals a glucose of 134, BUN 41, creatinine 2.9, sodium 144, potassium 3.9, chloride 118, CO2 21, calcium 6.4, phosphorus 5.2, magnesium 2.3, total protein 5.4, albumin 3.0, total bilirubin 0.6, AST 13, ALT 9, alkaline phosphatase 61. CBC with white blood cell count 8.1, RBC 3.03, hemoglobin 8.6, hematocrit 25.3, MCV 83.7, MCH 20.3, MCHC 33.8, RDW 18.5, platelets 126, MPV is 9.6. CURRENT MEDICATIONS 1. Rocephin 1 g q.24 h. 2. Zoloft 100 mg p.o. daily. 3. Minoxidil 5 mg p.o. b.i.d. 4. Fluid support half saline. 5. Norvasc 10 mg p.o. daily. 6. Tenormin 100 mg p.o. daily. 7. Zofran 4 mg q.6 h. p.r.n. for nausea. 8. Tylenol 325 mg q.4 h. p.r.n. fever and/or mild pain. 9. Oxycodone 5-10 mg p.o. q.4 h. p.r.n. severe pain. 10. Folic acid 1 mg p.o. daily. 11. Hydralazine 100 mg p.o. t.i.d. 12. Catapres 0.3 mg patch. 13. Lipitor 10 mg p.o. at nighttime. 14. Levemir 25 units subcutaneous. 15. Ativan 10 mg q.6 h. p.r.n. blood pressure greater than 180 or systolic greater than 100. Unit #: [id number] #: [id number] Patient: STONE BOGGS 16. Ativan 0.5 mg IV q.6 h. p.r.n. anxiety. 17. BuSpar 50 mg p.o. daily. Dictated by... Tejal Salter PA-C for Refugio Simms M.D. TP/sara TD: 10/03/2016 14:14 JOB #: [id number] TRANSFER OF CARE SUMMARY X X TRANSFER OF CARE SUMMARY
--- NOTE | ~2016-09-25 | A ---
[facility] Nutrition Therapy DATE: 10/08/16 Patient: STONE BOGGS Physician: RO Address: [address] [place] [address] Room/Bed: [address] [place] [address], Zip: [place] [address] Admit Date: 09/25/16 Date of : 37 Height: 5 5 Weight: 158 72 NUTRITIONAL ASSESSMENT: REASON: LOS nutrition assessment 81 yo female admitted for colon cancer s/p right iqana-colectomy, anemia PMH: GERD, DM, restless less syndrome, anemia Anthropometrics: Ht: 65" Wt: 72-74.2 kg since admission BMI: 27.2 Labs: Na+ 134 Gluc 303 BUN 37 Alb 3.3 Accuchecks 240-243 GFR 46.6 Meds: Levemir, novolog, MgSO4, KCl, furosemide, zofran, folic acid, lipitor, D5% I/O & Bowel function: 2630/305, last BM 10/07 Skin Integrity: reviewed Edema: None noted Diet: Pureed/ consistent carbohydrate diet Assessment: Chart reviewed, events noted. Pt admitted for anemia and colon cancer now POD#9 for right qiana-colectomy. Pt's RN reports that she has not been eating well since surgery. Please note, RD was never consulted to see the pt. It appears SPRAY MACHINE OPERATOR evaluated the pt on 10/04/16 and recommended pureed diet with thin liquids. Per MD note, the pt has had dysphagia post-op. RD spoke with the pt at bedside, who reports that food "Gets stuck" and pointed to her throat, stating that she has "Reflux". Pt denied having any stomach pain or n/v when eating and says that she does not have a desire to eat since surgery. Per RD observation of tray in room, the pt only consumed a few bites of her lunch. RD explained the importance of adequate nutrition to the pt, and she seemed to understand. Pt is agreeable to Glucerna BID and magic cup BID. RD will order. Pt is awaiting placement at rehab facility. Dx: Inadequate protein-energy intake RT clinical condition, possibly dysphagia, reflux AEB pt report of no appetite and poor intake. Intervention: 1. Pureed/ CC 2. Glucerna BID 3. Magic cup BID Monitoring, Evaluation and Goals: [facility] Nutrition Therapy DATE: 10/08/16 Patient: STONE BOGGS Physician: RO Address: [address] [place] [address] Room/Bed: [address] [place] [address], Zip: [place] [address] Admit Date: 09/25/16 Date of : 37 Height: 5 5 Weight: 158 72 1. Oral intake; tolerate >50-75% meals and supplements 2. Labs; WNL 3. Weight; prevent unintentional weight, preserve lean body mass 4. Skin; promote healing Recommendations: 1. Continue diet per SPRAY MACHINE OPERATOR recommendations. Pureed/ consistent carbohydrate diet. 2. Glucerna strawberry BID and Magic Cup chocolate BID for supplemental nutrition. 3. Appreciate staff and family encouraging adequate nutrient intake. 4. Consider GI consult or SPRAY MACHINE OPERATOR re-evaluation as deemed appropraite by MD, as the pt states that her food gets "stuck" and she has no appetite since her surgery. Pt is at moderate nutritional risk. RD will follow hospital course. Respectfully, FERN GEORGE RD, LD Food and Nutritional Services [facility] cc: client file
--- NOTE | ~2016-09-25 | DS ---
Unit #: [id number] #: [id number] Patient: STONE BOGGS [id number] [address] [place], [place] [address] [id number] I MR#: [id number] NAME: STONE BOGGS ROOM: 474 Age: 81 Sex: F Admission Date: 09/25/2016 : 1935 Discharge Date: Attending Physician: Юлия Cleveland M.D. Primary Care Physician: Jonas Rodrigues M.D. DISCHARGE SUMMARY ADDENDUM HISTORY Since the dictated transfer of care on 10/03/2016, until now, the patient's renal function has improved by much. Currently, her creatinine is 1.4 after much fluid hydration. Repeat chest x-ray has been done, with concern that due to the much hydration that was needed, was reviewed by me. I do not see any infiltrates on the chest x-ray and I do not see any pleural effusion. There is some poor patient effort noted. The patient is not hypoxic at this time. She does not have any symptoms of respiratory failure. The patient has been stable medically renally. I believe she has reached her maximum hospitalization benefits. She needs to be discharged to rehab where she will be able to participate in therapy. She can have continued physical, occupational as well as speech therapy. She was seen by speech pathologist since then until now and they have cleared her for diet with puree with thins with one-on-one supervision. There was mainly poor effort and anxiety with regard to dysphagia. No aspiration was seen. At this time, patient is medically stable. She can be discharged to [facility] facility for continued physical, occupation, and speech therapy. She may have her stephanie removed in 5 days and follow up with [facility] within 10-14 days. CONDITION/DISPOSITION Stable to be discharged to [facility] facility. FOLLOWUP 1. General Surgery in 10-14 days. 2. Primary care physician within 1-2 weeks. DISCHARGE MEDICATIONS Include: 1. Stop olmesartan/hydrochlorothiazide due to her kidney injury. 2. Zoloft 100 mg p.o. daily. 3. BuSpar 15 mg p.o. daily. 4. Norvasc 10 mg p.o. q.p.m. 5. Tenormin 100 mg p.o. daily. 6. Lovastatin 20 mg p.o. h.s. 7. Catapres 0.2 mg p.o. q.8 h. 8. Hydralazine 100 mg t.i.d. 9. Minoxidil 10 mg p.o. daily. 10. Levemir 15 units subcu h.s. 11. Low-dose sliding scale insulin prior to meals and at bedtime. Unit #: [id number] #: [id number] Patient: STONE BOGGS 12. Ativan 0.25 mg p.o. b.i.d. as needed for anxiety. Hold for sedation. DISCHARGE INSTRUCTIONS Please resume speech, physical and occupational therapy. Dictated by... Tejal Salter PA-C for Jimmy Donaldson TD: 10/06/2016 16:30 JOB #: [id number] DISCHARGE SUMMARY X X DISCHARGE SUMMARY
--- NOTE | ~2016-09-25 | CO ---
Unit #: [id number] #: [id number] Patient: STONE BOGGS [id number] [address] [place], [place] [address] [id number] I MR#: [id number] NAME: STONE BOGGS. ROOM: [facility] Age: 81 Sex: F Admission Date: 09/25/2016 : 1935 Attending Physician: Refugio Simms M.D. Primary Care Physician: Jonas Rodrigues M.D. CONSULTATION REPORT CHIEF COMPLAINT Right-sided colon cancer, status post right hemicolectomy, pathology pending, severe anemia. HISTORY OF PRESENT ILLNESS This is a 81-year-old female who recently had a significant decline in performance status. She was sleeping too much. This is according to the daughters. At PMD office, she was anemic. She was sent to this hospital. A CBC on September 25, 2016, showed WBC of 3.8, hemoglobin 5.4, hematocrit 18.4, MCV 67, and platelets 178,000. She received PRBC transfusion. Her hemoglobin is 9.1. Her creatinine is 1.5. Liver function tests are normal. Her CEA level is 80.6. Patient had a colonoscopy which is abnormal. Patient had a CT of the abdomen and pelvis on July 30, 2016. There was thickening and mass in the ascending colon. It was a noncontrast CT. There was a cyst in the left kidney. There was no obvious metastasis in the liver. She has recovered from the surgery. PAST MEDICAL HISTORY 1. Newly-diagnosed colon cancer. 2. Diabetes. 3. Hypertension. PAST SURGICAL HISTORY 1. Cholecystectomy. 2. Right hemicolectomy. 3. Surgery for elbow mass removal. ALLERGIES None. SOCIAL HISTORY No smoking, no alcohol, and no drugs. FAMILY HISTORY One of the cousins had lymphoma. No one has colon cancer or breast cancer. CURRENT MEDICATIONS 1. Entereg. 2. Zofran. 3. Roxicodone. 4. Lipitor. 5. Zoloft. 6. Hydralazine. 7. Tenormin. Unit #: [id number] #: [id number] Patient: STONE BOGGS 8. BuSpar. REVIEW OF SYSTEMS CONSTITUTIONAL: Decline in performance status. No fever, no chills, no sweats, no weight loss. EYES: No visual symptoms. EARS, NOSE AND THROAT: There is no runny nose or sore throat or difficulty hearing. CARDIOVASCULAR: No chest pain. No shortness of breath. No palpitations. No orthopnea. No PND. RESPIRATORY: No cough. No wheezing. No hemoptysis. GASTROINTESTINAL: No nausea, vomiting, diarrhea, constipation, hematochezia or melena. GENITOURINARY: No urinary frequency, hesitancy or urgency. No blood in the urine. MUSCULOSKELETAL: No muscle or joint pain. NEUROLOGIC: No headache. No numbness or tingling. No weakness. No seizure. PSYCHIATRIC: No anxiety, depression or mood disturbance. ENDOCRINE: No excessive urination or thirst. DERMATOLOGIC: No rash or change in the skin. ALLERGIC/IMMUNOLOGIC: No symptoms. HEMATOLOGIC/LYMPHATIC: Denies any symptoms. PHYSICAL EXAMINATION VITAL SIGNS: Afebrile, pulse 72, respirations 19, O2 saturations on room air 100%, and blood pressure 198/72. GENERAL: Patient is comfortable. ECOG is 0. The patient is pleasant. HEENT: Moist mucosa. Pupils equally reactive to light. Extraocular muscles intact. Sclerae anicteric. No obvious bleeding from nasal mucosa or oral mucosa. Scalp normal. Hearing normal. NECK: No JVD. No lymphadenopathy. LYMPHATIC/HEMATOLOGIC: There is no palpable adenopathy in the neck, axilla or inguinal area. CARDIOVASCULAR: S1, S2. Regular rate and rhythm. No S3 or S4. RESPIRATORY: Chest symmetrical, normal. Clear to auscultation bilaterally. No wheezes, no rales, no rhonchi. No dullness to percussion. ABDOMEN/GASTROINTESTINAL: Abdomen is soft, nontender, nondistended. No hepatosplenomegaly. EXTREMITIES: There is no clubbing, no cyanosis, no edema. No varicose veins. NEUROLOGICAL: Patient is alert, awake and oriented x3. Cranial nerves II-XII are intact. Sensory grossly intact. Motor is 4/5 in all four extremities. Gait is normal. Station is normal. Language is normal. Memory is normal. DTRs +2 in all four extremities. MUSCULOSKELETAL: No joint swelling. No bony tenderness. No muscle tenderness. SKIN: No petechiae, no rash, no ecchymosis. PSYCHIATRIC: No anxiety. No delusions or hallucinations. There is no agitation. Eye contact is normal. Affect is appropriate. There is no flight of ideas. DIAGNOSTIC STUDIES LABORATORY: As mentioned above. B12 is pending. Transferrin saturation is 1%. ASSESSMENT AND PLAN This is a 81-year-old female who has the following active issues: Unit #: [id number] #: [id number] Patient: STONE BOGGS. Colon cancer. Patient had a right hemicolectomy. Her CEA level is above 80. Final pathology is pending. I had an extensive discussion with the patient and her three children. Given her age, will provide just supportive care and close surveillance. I doubt that she can tolerate any chemotherapy. 2. Anemia. I will give her intravenous iron, folic acid, and B12 to stimulate the bone marrow. 1. Dictated by... Jimmy Silva/faizan TD: 09/29/2016 20:59 JOB #: [id number] CONSULTATION REPORT X Keyana Fitzgerald MD X CONSULTATION REPORT
--- NOTE | ~2016-09-25 | CT4 ---
[facility] A Service of [facility] & [facility] RADIOLOGY TEXT RESULTS PATIENT: STONE BOGGS LOCATION: [facility] 322- : 37 UNIT #: [id number] AGE: [address]: Юлия Cleveland MD SEX: F ORDER DR: [id number] [facility] [address] [place], [place] [address] [id number] I MR#: [id number] Acc #: [id number] NAME: STONE BOGGS. : 1935 SEX: F STUDY DATE/TIME: 09/27/2016 9:01 [facility]: [facility] ROOM: [facility] STUDY DESCRIPTION: CT Abd and Pelv Wo Cont Attending Physician: Юлия Cleveland M.D. Ordering Physician: Юлия Cleveland M.D. Primary Care Physician: Jonas Rodrigues M.D. MEDICAL IMAGING REPORT This report is preliminary unless electronic signature is present EXAM CT of the abdomen and pelvis without contrast. DATE OF EXAM 09/27/2016 INDICATION Anemia, blood loss since July 23, 2016. TECHNIQUE Axial CT images were obtained from the dome of the diaphragm through the symphysis pubis. No oral or intravenous contrast material was administered. NOTE: This CT exam was performed with one or more of the following radiation dose reduction techniques: automatic exposure control, adjustment of mA and/or kV according to patient size, and iterative reconstruction. FINDINGS Images through the lung bases demonstrate some right basilar atelectasis versus scarring. Patient is noted to have cardiomegaly. There are dystrophic calcifications of the mitral valve annulus. This patient has a lobulated lesion within the lateral hepatic segment. This actually has been present on exams dating back to 2010. 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 Spleen, stomach and proximal small bowel are within normal limits as are the adrenal glands. Pancreas appears unremarkable. Gallbladder surgically absent. Hyperdense structure is seen arising from the left kidney. This measures up to about 1.1 cm and is new when compared to the exam from 2010. I suspect it reflects hyperdense cyst, but is incompletely evaluated on this study is also new when compared to the exam from 2010. I am unable to clearly identify it on an ultrasound from January. [facility] A Service of [facility] & [facility] RADIOLOGY TEXT RESULTS PATIENT: STONE BOGGS LOCATION: [facility] 322-01 : 37 UNIT #: [id number] AGE: [address]: Юлия Cleveland MD SEX: F ORDER DR: 2015, although, this may simply be related to technique. The uterus contains some calcified fibroids. Urinary bladder appears unremarkable. There is colonic diverticulosis, although I do not see any evidence of diverticulitis. Please note this exam is significantly degraded by the lack of intravenous and oral contrast material which severely limits the evaluation of the GI tract; however, there is a suggestion of a soft tissue mass within the patient's ascending colon, and there is some pericolonic stranding this could reflect some asymmetric wall thickening related to some focal colitis, but I think given history, it is certainly suspicious for underlying colonic neoplasm. I would suggest further evaluation with endoscopy. This process is not resulting in obstruction at this time and I do not see any pneumatosis or free air. Review of bony windows does not demonstrate any aggressive osseous abnormalities. Patient is noted to have a vertebral body hemangioma at L5. Patient does appear to have some body wall edema particularly tracking along the right anterolateral abdominal wall. IMPRESSION 1. This examination is severely degraded by the lack of intravenous and oral contrast material which limits the assessment of the GI tract. However, I do question if there is potentially either focal wall thickening or soft tissue mass involving the ascending colon. There is also some pericolonic stranding. Differential considerations would include a focal colitis, but I think given history and time course, the findings are certainly worrisome for colonic neoplasm. Further evaluation with endoscopy is recommended. 2. Gallbladder is surgically absent. 3. Exophytic structure arising from the left kidney measures higher in density than simple cyst. It was not present on the prior renal angiogram from April 30, 2011. I would suggest further evaluation with multiphase renal protocol CT or MRI. 4. Colonic diverticulosis without evidence of diverticulitis. 5. 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 Please see the body of the report for any other additional incidental findings. Dictated by... Claudia Baig M.D. THIS IS AN ELECTRONICALLY VERIFIED REPORT Claudia Baig M.D. at 09/28/2016 1:24 PM AFF/jt TD: 09/27/2016 22:16 JOB #: [id number] [facility] A Service of [facility] RADIOLOGY TEXT RESULTS PATIENT: STONE BOGGS LOCATION: [facility] 322-01 : 37 UNIT #: [id number] AGE: [address]: Юлия Cleveland MD SEX: F ORDER DR: MEDICAL IMAGING REPORT COPY
[~2016-09-25 15:50] MED LIST: ANTACID650 MG PO; ASPIRIN EC81 M1 PO; ATENOLOL PO; BENICAR HCT 40-1 TA1 PO; BUSPAR15 M1 PO; CLONIDINE1 EAC1 TD; HYDRALAZINE HC100 MG PO; IRON325 ( 652 PO; LANTUS100 U/ML SUBQ; LONITEN10 M1 PO; NOVOLOG100 U/ML SUBQ; SERTRALINE HCL100 MG PO; TRIPLIX PO; VYTORIN 10/20 M1 TAB PO
[2016-09-25] MEDS ORDERED: ZOLOFT100 MG PO (18:45)
[2016-09-25] MEDS ORDERED: NOVOLOG100 U/M2 SUBQ (18:45)
[2016-09-25] MEDS ORDERED: OLMESARTAN-HCT1 EAC2 PO (18:46)
[2016-09-25] MEDS ORDERED: MINOXIDIL10 MG PO (18:49)
[2016-09-25] MEDS ORDERED: BUSPAR15 M1 PO (18:50)
[2016-09-25] MEDS ORDERED: LANTUS100 UNITS/ SUBQ (18:50)
[2016-09-25] MEDS ORDERED: ATENOLOL PO (18:50)
[2016-09-25] MEDS ORDERED: CATAPRES-TTS-30.3 MG TD (18:51)
[2016-09-25] MEDS ORDERED: LOVASTATIN20 M2 PO (18:52)
[2016-09-25] MEDS ORDERED: HYDRALAZINE HC100 MG PO (18:52)
[2016-09-25 19:15] LABS: EOSINOPHIL# 0.3 X10e3 (0-0.7); EOSINOPHIL% 7.5 % (0.0-7.0); HEMATOCRIT 18.4 % (35.0-45.0); LYMPHOCYTE# 0.8 X10e3 (1.0-3.5); LYMPHOCYTE% 21.2 % (17.0-45.0); MEAN CELL VOLUME 67.9 FL (83-96); MEAN CORPUSCULAR HGB CONC 29.5 g/dL (30-36); MEAN PLATELET VOLUME 11.2 FL (6.5-11.5); MONOCYTE# 0.4 X10e3 (0-1.0); MONOCYTE% 11.5 % (3.0-12.0); NEUTROPHIL# 2.3 X10e3 (1.5-7.1); NEUTROPHIL% 58.8 % (40-75); PLATELET COUNT 178 X10e3 (140-420); RED BLOOD COUNT 2.71 X10e (3.90-5.30); RED CELL DISTRIBUTION WIDTH 20.3 % (11.0-15.5); WHITE BLOOD COUNT 3.8 X10e3 (4.0-10.5)
[2016-09-25 19:18] LABS: DIFF IND YES; HEMOGLOBIN 5.4 gm/dL (12.0-16.0)
[2016-09-25 19:33] LABS: INR 1.1; PROTHROMBIN TIME (PATIENT) 11.4 SECONDS (9.6-11.5)
[2016-09-25 19:45] LABS: PLATELET ESTIMATE NORMAL (NORMAL)
[2016-09-25 19:50] LABS: ALBUMIN SERUM 3.7 g/dL (3.5-5.0); ALKALINE PHOSPHATASE 71 U/L (32-92); ALT (SGPT) 18 U/L (10-40); AST (SGOT) 16 U/L (10-42); BILIRUBIN,TOTAL 0.5 mg/dL (0.2-2.0); BLOOD UREA NITROGEN 25 mg/dL (9-23); BUN/CREATININE RATIO 19.23; CALCIUM SERUM 6.7 mg/dL (8.4-10.2); CARBON DIOXIDE 21 mmol/L (22-31); CHLORIDE 109 mmol/L (100-111); CK TOTAL 115 IU/L (26-140); CREATININE SERUM 1.3 mg/dL (0.6-1.4); GLOM FILT RATE Estimated 50.8 mL/min (>60); GLUCOSE FASTING 108 mg/dL (70-110); POTASSIUM 3.7 mmol/L (3.5-5.1); PROTEIN TOTAL SERUM 6.4 g/dL (6.0-8.3); SODIUM 141 mmol/L (135-145); TOTAL IRON BINDING CAPACITY 382 ug/dL (269-535); TRANSFERRIN 273 mg/dL (192-382)
[2016-09-25 19:52] LABS: IRON SERUM <5 ug/dL (28-170); TRANSFERRIN SATURATION 1 % (20-50)
[2016-09-25 20:05] LABS: FOLATE (FOLIC ACID) 11.1 ng/mL (>5.8)
[2016-09-25 20:11] LABS: %MB 0.8 % (0.0-4.0); MB 0.9 ng/ml
[2016-09-26 01:38] LABS: %MB 0.8 % (0.0-4.0); MB 0.9 ng/ml
[2016-09-26 07:13] LABS: BASOPHIL% 0.8 % (0-2.5); EOSINOPHIL# 0.2 X10e3 (0-0.7); EOSINOPHIL% 5.8 % (0.0-7.0); HEMATOCRIT 22.4 % (35.0-45.0); HEMOGLOBIN 7.1 gm/dL (12.0-16.0); LYMPHOCYTE# 0.9 X10e3 (1.0-3.5); LYMPHOCYTE% 23.8 % (17.0-45.0); MEAN CORPUSCULAR HEMOGLOBIN 22.6 PG (28-34); MEAN CORPUSCULAR HGB CONC 31.7 g/dL (30-36); MEAN PLATELET VOLUME 11.1 FL (6.5-11.5); MONOCYTE# 0.5 X10e3 (0-1.0); MONOCYTE% 13.1 % (3.0-12.0); NEUTROPHIL# 2.2 X10e3 (1.5-7.1); NEUTROPHIL% 56.5 % (40-75); PLATELET COUNT 166 X10e3 (140-420); RED BLOOD COUNT 3.15 X10e (3.90-5.30); RED CELL DISTRIBUTION WIDTH 21.9 % (11.0-15.5); WHITE BLOOD COUNT 3.9 X10e3 (4.0-10.5)
[2016-09-26 07:17] LABS: MEAN CELL VOLUME 71.1 FL (83-96)
[2016-09-26 07:18] LABS: DIFF IND NO
[2016-09-26 07:54] LABS: %MB 0.8 % (0.0-4.0); MB 0.8 ng/ml
[2016-09-26 08:33] LABS: CALCIUM SERUM 6.7 mg/dL (8.4-10.2); CREATININE SERUM 1.2 mg/dL (0.6-1.4); GLOM FILT RATE Estimated 55.7 mL/min (>60); POTASSIUM 3.7 mmol/L (3.5-5.1)
[2016-09-26 22:41] LABS: HEMATOCRIT 29.4 % (35.0-45.0)
[2016-09-26 22:42] LABS: HEMOGLOBIN 9.3 gm/dL (12.0-16.0)
[2016-09-27 09:08] LABS: HEMATOCRIT 27.9 % (35.0-45.0); HEMOGLOBIN 8.9 gm/dL (12.0-16.0); MEAN CORPUSCULAR HEMOGLOBIN 23.6 PG (28-34); MEAN CORPUSCULAR HGB CONC 31.8 g/dL (30-36); RED BLOOD COUNT 3.77 X10e (3.90-5.30); RED CELL DISTRIBUTION WIDTH 21.6 % (11.0-15.5); WHITE BLOOD COUNT 4.5 X10e3 (4.0-10.5)
[2016-09-27 09:11] LABS: MEAN CELL VOLUME 74.2 FL (83-96)
[2016-09-27 09:38] LABS: BUN/CREATININE RATIO 15.38; CREATININE SERUM 1.3 mg/dL (0.6-1.4); GLOM FILT RATE Estimated 50.8 mL/min (>60); POTASSIUM 3.4 mmol/L (3.5-5.1)
[2016-09-28 05:54] LABS: HEMATOCRIT 27.6 % (35.0-45.0); HEMOGLOBIN 8.7 gm/dL (12.0-16.0); MEAN CELL VOLUME 74.2 FL (83-96); MEAN CORPUSCULAR HEMOGLOBIN 23.4 PG (28-34); MEAN CORPUSCULAR HGB CONC 31.5 g/dL (30-36); MEAN PLATELET VOLUME 10.5 FL (6.5-11.5); RED BLOOD COUNT 3.72 X10e (3.90-5.30); WHITE BLOOD COUNT 5.9 X10e3 (4.0-10.5)
[2016-09-28 06:48] LABS: BUN/CREATININE RATIO 14.28; CREATININE SERUM 1.4 mg/dL (0.6-1.4); GLOM FILT RATE Estimated 46.6 mL/min (>60); POTASSIUM 3.3 mmol/L (3.5-5.1)
[2016-09-29 03:00] LABS: BASOPHIL% 0.6 % (0-2.5); DIFF IND NO; EOSINOPHIL# 0.2 X10e3 (0-0.7); EOSINOPHIL% 4.1 % (0.0-7.0); HEMATOCRIT 28.7 % (35.0-45.0); HEMOGLOBIN 9.1 gm/dL (12.0-16.0); LYMPHOCYTE% 17.6 % (17.0-45.0); MEAN CELL VOLUME 74.2 FL (83-96); MEAN CORPUSCULAR HEMOGLOBIN 23.6 PG (28-34); MEAN CORPUSCULAR HGB CONC 31.9 g/dL (30-36); MEAN PLATELET VOLUME 9.4 FL (6.5-11.5); MONOCYTE# 0.6 X10e3 (0-1.0); MONOCYTE% 10.3 % (3.0-12.0); NEUTROPHIL# 3.6 X10e3 (1.5-7.1); NEUTROPHIL% 67.4 % (40-75); PLATELET COUNT 165 X10e3 (140-420); RED BLOOD COUNT 3.86 X10e (3.90-5.30); RED CELL DISTRIBUTION WIDTH 22.6 % (11.0-15.5); WHITE BLOOD COUNT 5.4 X10e3 (4.0-10.5)
[2016-09-29 03:29] LABS: ALBUMIN SERUM 3.6 g/dL (3.5-5.0); BILIRUBIN,TOTAL 0.7 mg/dL (0.2-2.0); BUN/CREATININE RATIO 14.66; CALCIUM SERUM 6.7 mg/dL (8.4-10.2); CREATININE SERUM 1.5 mg/dL (0.6-1.4); GLOM FILT RATE Estimated 43.1 mL/min (>60); POTASSIUM 3.5 mmol/L (3.5-5.1); PROTEIN TOTAL SERUM 6.1 g/dL (6.0-8.3)
[2016-09-30 03:43] LABS: HEMATOCRIT 28.5 % (35.0-45.0); HEMOGLOBIN 8.8 gm/dL (12.0-16.0); MEAN CELL VOLUME 76.2 FL (83-96); MEAN CORPUSCULAR HEMOGLOBIN 23.5 PG (28-34); MEAN CORPUSCULAR HGB CONC 30.9 g/dL (30-36); MEAN PLATELET VOLUME 10.4 FL (6.5-11.5); RED BLOOD COUNT 3.74 X10e (3.90-5.30); RED CELL DISTRIBUTION WIDTH 22.6 % (11.0-15.5)
[2016-09-30 03:44] LABS: WHITE BLOOD COUNT 9.8 X10e3 (4.0-10.5)
[2016-09-30 04:07] LABS: ALBUMIN SERUM 3.3 g/dL (3.5-5.0); BILIRUBIN,TOTAL 0.3 mg/dL (0.2-2.0); BUN/CREATININE RATIO 12.63; CALCIUM SERUM 6.8 mg/dL (8.4-10.2); CREATININE SERUM 1.9 mg/dL (0.6-1.4); GLOM FILT RATE Estimated 32.8 mL/min (>60); POTASSIUM 3.7 mmol/L (3.5-5.1); PROTEIN TOTAL SERUM 6.1 g/dL (6.0-8.3)
[2016-10-01 07:48] LABS: BASOPHIL% 0.1 % (0-2.5); HEMATOCRIT 17.2 % (35.0-45.0); LYMPHOCYTE# 0.7 X10e3 (1.0-3.5); LYMPHOCYTE% 6.9 % (17.0-45.0); MEAN CORPUSCULAR HEMOGLOBIN 23.4 PG (28-34); MEAN CORPUSCULAR HGB CONC 30.4 g/dL (30-36); MEAN PLATELET VOLUME 10.8 FL (6.5-11.5); MONOCYTE# 0.6 X10e3 (0-1.0); MONOCYTE% 6.3 % (3.0-12.0); NEUTROPHIL# 8.5 X10e3 (1.5-7.1); NEUTROPHIL% 86.7 % (40-75); PLATELET COUNT 181 X10e3 (140-420); RED BLOOD COUNT 2.23 X10e (3.90-5.30); RED CELL DISTRIBUTION WIDTH 23.3 % (11.0-15.5); WHITE BLOOD COUNT 9.8 X10e3 (4.0-10.5)
[2016-10-01 07:53] LABS: HEMOGLOBIN 5.2 gm/dL (12.0-16.0)
[2016-10-01 07:54] LABS: DIFF IND YES
[2016-10-01 08:02] LABS: PLATELET ESTIMATE NORMAL (NORMAL)
[2016-10-01 08:03] LABS: HYPOCHROMIA MOD; MICROCYTOSIS MOD
[2016-10-01 08:24] LABS: ALBUMIN SERUM 2.7 g/dL (3.5-5.0); BILIRUBIN,TOTAL 0.4 mg/dL (0.2-2.0); BUN/CREATININE RATIO 12.6; CALCIUM SERUM 6.7 mg/dL (8.4-10.2); CREATININE SERUM 2.3 mg/dL (0.6-1.4); GLOM FILT RATE Estimated 26.3 mL/min (>60); POTASSIUM 4.4 mmol/L (3.5-5.1)
[2016-10-01 13:22] LABS: HEMATOCRIT 21.7 % (35.0-45.0); HEMOGLOBIN 7.1 gm/dL (12.0-16.0)
[2016-10-01 16:59] LABS: URINE APPEARANCE CLOUDY; URINE BILIRUBIN NEG (NEG); URINE BLOOD TRACE (NEG); URINE COLOR YELLOW; URINE GLUCOSE NEG (NEG); URINE KETONE NEG (NEG); URINE LEUKOCYTE ESTERASE 2+ (NEG); URINE NITRATE NEG (NEG); URINE PROTEIN 1+ (NEG); URINE SPECIFIC GRAVITY 1.021 (1.003-1.035); URINE UROBILINOGEN 0.2 MG/DL (NEG)
[2016-10-01 17:00] LABS: CULTURE INDICATED? YES; URINE BACTERIA AUWI NEG (NEGATIVE); URINE SQUAMOUS EPITHELIAL CELL MOD /[HPF]; UWBCS1 AUWI 50-100 (0-5)
[2016-10-01 19:11] LABS: HEMATOCRIT 26.5 % (35.0-45.0); HEMOGLOBIN 7.9 gm/dL (12.0-16.0)
[2016-10-01 23:11] LABS: HEMATOCRIT 22.1 % (35.0-45.0); HEMOGLOBIN 7.3 gm/dL (12.0-16.0); MEAN CORPUSCULAR HEMOGLOBIN 26.1 PG (28-34); MEAN PLATELET VOLUME 9.9 FL (6.5-11.5); RED BLOOD COUNT 2.79 X10e (3.90-5.30); RED CELL DISTRIBUTION WIDTH 19.3 % (11.0-15.5); WHITE BLOOD COUNT 10.3 X10e3 (4.0-10.5)
[2016-10-02 07:27] LABS: BASOPHIL% 0.2 % (0-2.5); EOSINOPHIL# 0.1 X10e3 (0-0.7); EOSINOPHIL% 0.6 % (0.0-7.0); HEMATOCRIT 27.9 % (35.0-45.0); LYMPHOCYTE% 9.4 % (17.0-45.0); MEAN CELL VOLUME 81.3 FL (83-96); MEAN CORPUSCULAR HEMOGLOBIN 27.5 PG (28-34); MEAN CORPUSCULAR HGB CONC 33.8 g/dL (30-36); MEAN PLATELET VOLUME 9.6 FL (6.5-11.5); MONOCYTE# 0.9 X10e3 (0-1.0); MONOCYTE% 8.9 % (3.0-12.0); NEUTROPHIL# 8.3 X10e3 (1.5-7.1); NEUTROPHIL% 80.9 % (40-75); PLATELET COUNT 154 X10e3 (140-420); RED BLOOD COUNT 3.43 X10e (3.90-5.30); RED CELL DISTRIBUTION WIDTH 18.1 % (11.0-15.5); WHITE BLOOD COUNT 10.2 X10e3 (4.0-10.5)
[2016-10-02 07:39] LABS: DIFF IND NO; HEMOGLOBIN 9.4 gm/dL (12.0-16.0)
[2016-10-02 07:49] LABS: INR 2.1; PARTIAL THROMBOPLASTIN TIME 38.7 SECONDS (23.5-31.3)
[2016-10-02 07:56] LABS: BILIRUBIN,TOTAL 0.6 mg/dL (0.2-2.0); BUN/CREATININE RATIO 11.76; CALCIUM SERUM 6.5 mg/dL (8.4-10.2); CREATININE SERUM 3.4 mg/dL (0.6-1.4); GLOM FILT RATE Estimated 16.8 mL/min (>60); MAGNESIUM 2.4 mg/dL (1.6-3.0); POTASSIUM 4.3 mmol/L (3.5-5.1); PROTEIN TOTAL SERUM 5.6 g/dL (6.0-8.3)
[2016-10-02 08:00] LABS: PROTHROMBIN TIME (PATIENT) 22.7 SECONDS (9.6-11.5)
[2016-10-02 14:26] LABS: HEMATOCRIT 26.8 % (35.0-45.0); HEMOGLOBIN 8.8 gm/dL (12.0-16.0)
[2016-10-02 15:56] LABS: BASOPHIL% 0.3 % (0-2.5); EOSINOPHIL# 0.1 X10e3 (0-0.7); EOSINOPHIL% 1.1 % (0.0-7.0); HEMATOCRIT 24.4 % (35.0-45.0); HEMOGLOBIN 8.3 gm/dL (12.0-16.0); LYMPHOCYTE# 0.9 X10e3 (1.0-3.5); LYMPHOCYTE% 8.6 % (17.0-45.0); MEAN CELL VOLUME 82.5 FL (83-96); MEAN PLATELET VOLUME 10.3 FL (6.5-11.5); MONOCYTE# 0.8 X10e3 (0-1.0); MONOCYTE% 8.1 % (3.0-12.0); NEUTROPHIL# 8.1 X10e3 (1.5-7.1); NEUTROPHIL% 81.9 % (40-75); PLATELET COUNT 133 X10e3 (140-420); RED BLOOD COUNT 2.96 X10e (3.90-5.30); RED CELL DISTRIBUTION WIDTH 18.2 % (11.0-15.5); WHITE BLOOD COUNT 9.9 X10e3 (4.0-10.5)
[2016-10-02 15:58] LABS: DIFF IND YES
[2016-10-02 16:49] LABS: ANISOCYTOSIS SL; PLATELET ESTIMATE NORMAL (NORMAL)
[2016-10-02 23:17] LABS: BASOPHIL% 0.3 % (0-2.5); DIFF IND YES; EOSINOPHIL# 0.1 X10e3 (0-0.7); HEMATOCRIT 23.4 % (35.0-45.0); HEMOGLOBIN 7.8 gm/dL (12.0-16.0); LYMPHOCYTE% 11.3 % (17.0-45.0); MEAN CELL VOLUME 81.6 FL (83-96); MEAN CORPUSCULAR HEMOGLOBIN 27.3 PG (28-34); MEAN CORPUSCULAR HGB CONC 33.4 g/dL (30-36); MEAN PLATELET VOLUME 10.1 FL (6.5-11.5); MONOCYTE# 0.8 X10e3 (0-1.0); MONOCYTE% 8.5 % (3.0-12.0); NEUTROPHIL% 78.9 % (40-75); PLATELET COUNT 127 X10e3 (140-420); RED BLOOD COUNT 2.87 X10e (3.90-5.30); RED CELL DISTRIBUTION WIDTH 17.7 % (11.0-15.5); WHITE BLOOD COUNT 8.9 X10e3 (4.0-10.5)
[2016-10-02 23:40] LABS: NUCLEATED RED BLOOD CELL 1 /100 (0); PLATELET ESTIMATE NORMAL (NORMAL)
[2016-10-02 23:41] LABS: ANISOCYTOSIS MOD; HYPOCHROMIA MOD; POIKILOCYTOSIS MOD
[2016-10-03 03:06] LABS: HEMATOCRIT 23.1 % (35.0-45.0); HEMOGLOBIN 7.8 gm/dL (12.0-16.0); MEAN CELL VOLUME 82.1 FL (83-96); MEAN CORPUSCULAR HEMOGLOBIN 27.7 PG (28-34); MEAN CORPUSCULAR HGB CONC 33.8 g/dL (30-36); MEAN PLATELET VOLUME 10.2 FL (6.5-11.5); RED BLOOD COUNT 2.81 X10e (3.90-5.30); WHITE BLOOD COUNT 8.6 X10e3 (4.0-10.5)
[2016-10-03 03:22] LABS: PARTIAL THROMBOPLASTIN TIME 40.6 SECONDS (23.5-31.3); PROTHROMBIN TIME (PATIENT) 21.4 SECONDS (9.6-11.5)
[2016-10-03 03:30] LABS: BILIRUBIN,TOTAL 0.6 mg/dL (0.2-2.0); BUN/CREATININE RATIO 14.13; CALCIUM SERUM 6.5 mg/dL (8.4-10.2); CREATININE SERUM 2.9 mg/dL (0.6-1.4); GLOM FILT RATE Estimated 20.1 mL/min (>60); MAGNESIUM 2.3 mg/dL (1.6-3.0); PHOSPHOROUS 5.2 mg/dL (2.5-4.6); POTASSIUM 3.9 mmol/L (3.5-5.1); PROTEIN TOTAL SERUM 5.4 g/dL (6.0-8.3)
[2016-10-03 08:19] LABS: BASOPHIL% 0.3 % (0-2.5); EOSINOPHIL# 0.2 X10e3 (0-0.7); EOSINOPHIL% 2.8 % (0.0-7.0); HEMOGLOBIN 9.1 gm/dL (12.0-16.0); LYMPHOCYTE# 0.9 X10e3 (1.0-3.5); LYMPHOCYTE% 10.4 % (17.0-45.0); MEAN CELL VOLUME 84.2 FL (83-96); MEAN CORPUSCULAR HEMOGLOBIN 28.4 PG (28-34); MEAN CORPUSCULAR HGB CONC 33.7 g/dL (30-36); MEAN PLATELET VOLUME 10.1 FL (6.5-11.5); MONOCYTE# 0.7 X10e3 (0-1.0); MONOCYTE% 7.7 % (3.0-12.0); NEUTROPHIL# 6.7 X10e3 (1.5-7.1); NEUTROPHIL% 78.8 % (40-75); PLATELET COUNT 135 X10e3 (140-420); RED CELL DISTRIBUTION WIDTH 18.2 % (11.0-15.5); WHITE BLOOD COUNT 8.5 X10e3 (4.0-10.5)
[2016-10-03 08:23] LABS: DIFF IND NO
[2016-10-03 10:24] LABS: BASOPHIL% 0.2 % (0-2.5); EOSINOPHIL# 0.2 X10e3 (0-0.7); EOSINOPHIL% 2.6 % (0.0-7.0); HEMATOCRIT 25.3 % (35.0-45.0); HEMOGLOBIN 8.6 gm/dL (12.0-16.0); LYMPHOCYTE# 0.9 X10e3 (1.0-3.5); LYMPHOCYTE% 11.5 % (17.0-45.0); MEAN CELL VOLUME 83.7 FL (83-96); MEAN CORPUSCULAR HEMOGLOBIN 28.3 PG (28-34); MEAN CORPUSCULAR HGB CONC 33.8 g/dL (30-36); MEAN PLATELET VOLUME 9.6 FL (6.5-11.5); MONOCYTE# 0.6 X10e3 (0-1.0); MONOCYTE% 7.7 % (3.0-12.0); NEUTROPHIL# 6.3 X10e3 (1.5-7.1); PLATELET COUNT 126 X10e3 (140-420); RED BLOOD COUNT 3.03 X10e (3.90-5.30); RED CELL DISTRIBUTION WIDTH 18.5 % (11.0-15.5); WHITE BLOOD COUNT 8.1 X10e3 (4.0-10.5)
[2016-10-03 10:29] LABS: DIFF IND NO
[2016-10-03 17:24] LABS: BASOPHIL% 0.5 % (0-2.5); EOSINOPHIL# 0.3 X10e3 (0-0.7); EOSINOPHIL% 3.5 % (0.0-7.0); HEMATOCRIT 30.5 % (35.0-45.0); HEMOGLOBIN 10.3 gm/dL (12.0-16.0); LYMPHOCYTE# 0.9 X10e3 (1.0-3.5); LYMPHOCYTE% 10.7 % (17.0-45.0); MEAN CELL VOLUME 84.3 FL (83-96); MEAN CORPUSCULAR HEMOGLOBIN 28.6 PG (28-34); MEAN CORPUSCULAR HGB CONC 33.9 g/dL (30-36); MEAN PLATELET VOLUME 10.3 FL (6.5-11.5); MONOCYTE# 0.8 X10e3 (0-1.0); MONOCYTE% 8.7 % (3.0-12.0); NEUTROPHIL# 6.6 X10e3 (1.5-7.1); NEUTROPHIL% 76.6 % (40-75); PLATELET COUNT 129 X10e3 (140-420); RED BLOOD COUNT 3.62 X10e (3.90-5.30); RED CELL DISTRIBUTION WIDTH 17.8 % (11.0-15.5); WHITE BLOOD COUNT 8.7 X10e3 (4.0-10.5)
[2016-10-03 17:26] LABS: DIFF IND NO
[2016-10-03 23:15] LABS: BASOPHIL# 0.1 X10e3 (0-0.3); BASOPHIL% 0.6 % (0-2.5); DIFF IND NO; EOSINOPHIL# 0.3 X10e3 (0-0.7); EOSINOPHIL% 3.7 % (0.0-7.0); HEMATOCRIT 31.2 % (35.0-45.0); HEMOGLOBIN 10.4 gm/dL (12.0-16.0); LYMPHOCYTE# 0.8 X10e3 (1.0-3.5); LYMPHOCYTE% 8.6 % (17.0-45.0); MEAN CELL VOLUME 83.4 FL (83-96); MEAN CORPUSCULAR HEMOGLOBIN 27.9 PG (28-34); MEAN CORPUSCULAR HGB CONC 33.5 g/dL (30-36); MEAN PLATELET VOLUME 9.8 FL (6.5-11.5); MONOCYTE# 0.8 X10e3 (0-1.0); MONOCYTE% 8.3 % (3.0-12.0); NEUTROPHIL# 7.1 X10e3 (1.5-7.1); NEUTROPHIL% 78.8 % (40-75); PLATELET COUNT 137 X10e3 (140-420); RED BLOOD COUNT 3.74 X10e (3.90-5.30); RED CELL DISTRIBUTION WIDTH 17.8 % (11.0-15.5)
[2016-10-04 02:40] LABS: INR 1.1
[2016-10-04 02:47] LABS: ALBUMIN SERUM 3.5 g/dL (3.5-5.0); BILIRUBIN,TOTAL 1.1 mg/dL (0.2-2.0); BUN/CREATININE RATIO 18.94; CALCIUM SERUM 7.2 mg/dL (8.4-10.2); CREATININE SERUM 1.9 mg/dL (0.6-1.4); GLOM FILT RATE Estimated 32.8 mL/min (>60); MAGNESIUM 2.3 mg/dL (1.6-3.0); PROTEIN TOTAL SERUM 6.9 g/dL (6.0-8.3)
[2016-10-04 07:54] LABS: BASOPHIL% 0.4 % (0-2.5); DIFF IND NO; EOSINOPHIL# 0.2 X10e3 (0-0.7); EOSINOPHIL% 2.3 % (0.0-7.0); HEMATOCRIT 30.6 % (35.0-45.0); HEMOGLOBIN 10.5 gm/dL (12.0-16.0); LYMPHOCYTE# 0.6 X10e3 (1.0-3.5); LYMPHOCYTE% 6.3 % (17.0-45.0); MEAN CELL VOLUME 83.5 FL (83-96); MEAN CORPUSCULAR HEMOGLOBIN 28.6 PG (28-34); MEAN CORPUSCULAR HGB CONC 34.3 g/dL (30-36); MEAN PLATELET VOLUME 10.2 FL (6.5-11.5); MONOCYTE# 0.7 X10e3 (0-1.0); MONOCYTE% 7.9 % (3.0-12.0); NEUTROPHIL# 7.4 X10e3 (1.5-7.1); NEUTROPHIL% 83.1 % (40-75); PLATELET COUNT 138 X10e3 (140-420); RED BLOOD COUNT 3.67 X10e (3.90-5.30); RED CELL DISTRIBUTION WIDTH 17.8 % (11.0-15.5); WHITE BLOOD COUNT 8.9 X10e3 (4.0-10.5)
[2016-10-04 14:16] LABS: ALDOSTERONE SERUM 3 ng/dL (***)
[2016-10-04 15:00] LABS: BASOPHIL% 0.4 % (0-2.5); EOSINOPHIL% 0.3 % (0.0-7.0); HEMATOCRIT 33.5 % (35.0-45.0); HEMOGLOBIN 11.1 gm/dL (12.0-16.0); LYMPHOCYTE# 0.4 X10e3 (1.0-3.5); LYMPHOCYTE% 3.9 % (17.0-45.0); MEAN CELL VOLUME 85.6 FL (83-96); MEAN CORPUSCULAR HEMOGLOBIN 28.4 PG (28-34); MEAN CORPUSCULAR HGB CONC 33.1 g/dL (30-36); MEAN PLATELET VOLUME 10.2 FL (6.5-11.5); MONOCYTE# 0.8 X10e3 (0-1.0); MONOCYTE% 7.3 % (3.0-12.0); NEUTROPHIL# 10.1 X10e3 (1.5-7.1); NEUTROPHIL% 88.1 % (40-75); PLATELET COUNT 159 X10e3 (140-420); RED BLOOD COUNT 3.92 X10e (3.90-5.30); RED CELL DISTRIBUTION WIDTH 18.4 % (11.0-15.5); WHITE BLOOD COUNT 11.4 X10e3 (4.0-10.5)
[2016-10-04 15:01] LABS: DIFF IND NO
[2016-10-04 18:12] LABS: HEMATOCRIT 33.6 % (35.0-45.0); HEMOGLOBIN 11.4 gm/dL (12.0-16.0); MEAN CELL VOLUME 84.5 FL (83-96); MEAN CORPUSCULAR HEMOGLOBIN 28.5 PG (28-34); MEAN CORPUSCULAR HGB CONC 33.8 g/dL (30-36); MEAN PLATELET VOLUME 10.2 FL (6.5-11.5); RED BLOOD COUNT 3.98 X10e (3.90-5.30); RED CELL DISTRIBUTION WIDTH 17.9 % (11.0-15.5); WHITE BLOOD COUNT 10.4 X10e3 (4.0-10.5)
[2016-10-04 23:01] LABS: BASOPHIL% 0.2 % (0-2.5); EOSINOPHIL# 0.1 X10e3 (0-0.7); EOSINOPHIL% 0.6 % (0.0-7.0); HEMATOCRIT 33.8 % (35.0-45.0); HEMOGLOBIN 11.1 gm/dL (12.0-16.0); LYMPHOCYTE# 0.5 X10e3 (1.0-3.5); LYMPHOCYTE% 4.4 % (17.0-45.0); MEAN CELL VOLUME 84.8 FL (83-96); MEAN CORPUSCULAR HEMOGLOBIN 27.9 PG (28-34); MEAN CORPUSCULAR HGB CONC 32.9 g/dL (30-36); MEAN PLATELET VOLUME 10.2 FL (6.5-11.5); MONOCYTE# 0.8 X10e3 (0-1.0); MONOCYTE% 7.5 % (3.0-12.0); NEUTROPHIL# 9.6 X10e3 (1.5-7.1); NEUTROPHIL% 87.3 % (40-75); PLATELET COUNT 155 X10e3 (140-420); RED BLOOD COUNT 3.98 X10e (3.90-5.30); RED CELL DISTRIBUTION WIDTH 18.7 % (11.0-15.5)
[2016-10-04 23:02] LABS: DIFF IND NO
[2016-10-05 05:10] LABS: BASOPHIL% 0.2 % (0-2.5); EOSINOPHIL# 0.1 X10e3 (0-0.7); EOSINOPHIL% 0.5 % (0.0-7.0); HEMATOCRIT 33.3 % (35.0-45.0); HEMOGLOBIN 11.1 gm/dL (12.0-16.0); LYMPHOCYTE# 0.5 X10e3 (1.0-3.5); LYMPHOCYTE% 4.8 % (17.0-45.0); MEAN CELL VOLUME 84.5 FL (83-96); MEAN CORPUSCULAR HEMOGLOBIN 28.3 PG (28-34); MEAN CORPUSCULAR HGB CONC 33.4 g/dL (30-36); MONOCYTE# 0.8 X10e3 (0-1.0); MONOCYTE% 7.4 % (3.0-12.0); NEUTROPHIL# 8.8 X10e3 (1.5-7.1); NEUTROPHIL% 87.1 % (40-75); PLATELET COUNT 148 X10e3 (140-420); RED BLOOD COUNT 3.94 X10e (3.90-5.30); RED CELL DISTRIBUTION WIDTH 18.7 % (11.0-15.5); WHITE BLOOD COUNT 10.1 X10e3 (4.0-10.5)
[2016-10-05 05:14] LABS: INR 1.1; PROTHROMBIN TIME (PATIENT) 11.4 SECONDS (9.6-11.5)
[2016-10-05 05:26] LABS: DIFF IND NO
[2016-10-05 05:57] LABS: ALBUMIN SERUM 3.5 g/dL (3.5-5.0); BILIRUBIN,TOTAL 1.2 mg/dL (0.2-2.0); BUN/CREATININE RATIO 22.85; CALCIUM SERUM 7.3 mg/dL (8.4-10.2); CREATININE SERUM 1.4 mg/dL (0.6-1.4); GLOM FILT RATE Estimated 46.6 mL/min (>60); POTASSIUM 3.4 mmol/L (3.5-5.1); PROTEIN TOTAL SERUM 6.6 g/dL (6.0-8.3)
[2016-10-05 07:33] LABS: MEAN CELL VOLUME 84.8 FL (83-96); MEAN CORPUSCULAR HEMOGLOBIN 28.2 PG (28-34); MEAN CORPUSCULAR HGB CONC 33.3 g/dL (30-36); MEAN PLATELET VOLUME 10.1 FL (6.5-11.5); RED BLOOD COUNT 3.89 X10e (3.90-5.30); RED CELL DISTRIBUTION WIDTH 18.5 % (11.0-15.5); WHITE BLOOD COUNT 9.9 X10e3 (4.0-10.5)
[2016-10-05 18:27] LABS: HEMATOCRIT 33.3 % (35.0-45.0); MEAN CELL VOLUME 84.7 FL (83-96); MEAN CORPUSCULAR HGB CONC 33.1 g/dL (30-36); MEAN PLATELET VOLUME 10.4 FL (6.5-11.5); RED BLOOD COUNT 3.93 X10e (3.90-5.30); RED CELL DISTRIBUTION WIDTH 18.6 % (11.0-15.5); WHITE BLOOD COUNT 10.8 X10e3 (4.0-10.5)
[2016-10-06 05:29] LABS: HEMATOCRIT 36.1 % (35.0-45.0); HEMOGLOBIN 11.8 gm/dL (12.0-16.0); MEAN CELL VOLUME 84.1 FL (83-96); MEAN CORPUSCULAR HEMOGLOBIN 27.5 PG (28-34); MEAN CORPUSCULAR HGB CONC 32.7 g/dL (30-36); MEAN PLATELET VOLUME 10.9 FL (6.5-11.5); RED BLOOD COUNT 4.29 X10e (3.90-5.30); RED CELL DISTRIBUTION WIDTH 19.9 % (11.0-15.5)
[2016-10-06 05:50] LABS: ALBUMIN SERUM 3.6 g/dL (3.5-5.0); BILIRUBIN,TOTAL 0.7 mg/dL (0.2-2.0); BUN/CREATININE RATIO 23.57; CALCIUM SERUM 7.3 mg/dL (8.4-10.2); CREATININE SERUM 1.4 mg/dL (0.6-1.4); GLOM FILT RATE Estimated 46.6 mL/min (>60); POTASSIUM 3.5 mmol/L (3.5-5.1); PROTEIN TOTAL SERUM 6.8 g/dL (6.0-8.3)
[2016-10-06 18:08] LABS: HEMATOCRIT 32.5 % (35.0-45.0); HEMOGLOBIN 10.6 gm/dL (12.0-16.0); MEAN CELL VOLUME 84.5 FL (83-96); MEAN CORPUSCULAR HEMOGLOBIN 27.6 PG (28-34); MEAN CORPUSCULAR HGB CONC 32.7 g/dL (30-36); MEAN PLATELET VOLUME 9.9 FL (6.5-11.5); RED BLOOD COUNT 3.85 X10e (3.90-5.30); RED CELL DISTRIBUTION WIDTH 20.4 % (11.0-15.5); WHITE BLOOD COUNT 8.5 X10e3 (4.0-10.5)
[2016-10-07 03:37] LABS: BASOPHIL% 0.3 % (0-2.5); EOSINOPHIL# 0.4 X10e3 (0-0.7); EOSINOPHIL% 4.2 % (0.0-7.0); HEMATOCRIT 34.8 % (35.0-45.0); HEMOGLOBIN 11.3 gm/dL (12.0-16.0); LYMPHOCYTE# 0.6 X10e3 (1.0-3.5); LYMPHOCYTE% 6.8 % (17.0-45.0); MEAN CELL VOLUME 85.3 FL (83-96); MEAN CORPUSCULAR HEMOGLOBIN 27.6 PG (28-34); MEAN CORPUSCULAR HGB CONC 32.4 g/dL (30-36); MEAN PLATELET VOLUME 10.2 FL (6.5-11.5); MONOCYTE# 0.8 X10e3 (0-1.0); MONOCYTE% 9.3 % (3.0-12.0); NEUTROPHIL% 79.4 % (40-75); PLATELET COUNT 161 X10e3 (140-420); RED BLOOD COUNT 4.08 X10e (3.90-5.30); RED CELL DISTRIBUTION WIDTH 20.3 % (11.0-15.5); WHITE BLOOD COUNT 8.8 X10e3 (4.0-10.5)
[2016-10-07 03:41] LABS: DIFF IND NO
[2016-10-07 04:07] LABS: ALBUMIN SERUM 3.4 g/dL (3.5-5.0); BILIRUBIN,TOTAL 0.9 mg/dL (0.2-2.0); BUN/CREATININE RATIO 21.17; CALCIUM SERUM 6.7 mg/dL (8.4-10.2); CREATININE SERUM 1.7 mg/dL (0.6-1.4); GLOM FILT RATE Estimated 37.3 mL/min (>60); MAGNESIUM 1.9 mg/dL (1.6-3.0); POTASSIUM 3.4 mmol/L (3.5-5.1); PROTEIN TOTAL SERUM 6.2 g/dL (6.0-8.3)
[2016-10-07 07:01] LABS: HEMATOCRIT 31.7 % (35.0-45.0); HEMOGLOBIN 10.4 gm/dL (12.0-16.0); MEAN CELL VOLUME 84.8 FL (83-96); MEAN CORPUSCULAR HEMOGLOBIN 27.7 PG (28-34); MEAN CORPUSCULAR HGB CONC 32.6 g/dL (30-36); MEAN PLATELET VOLUME 10.1 FL (6.5-11.5); RED BLOOD COUNT 3.74 X10e (3.90-5.30); RED CELL DISTRIBUTION WIDTH 19.9 % (11.0-15.5); WHITE BLOOD COUNT 8.3 X10e3 (4.0-10.5)
[2016-10-07 18:13] LABS: HEMATOCRIT 36.4 % (35.0-45.0); HEMOGLOBIN 11.8 gm/dL (12.0-16.0); MEAN CORPUSCULAR HEMOGLOBIN 27.3 PG (28-34); MEAN CORPUSCULAR HGB CONC 32.5 g/dL (30-36); MEAN PLATELET VOLUME 10.4 FL (6.5-11.5); RED BLOOD COUNT 4.34 X10e (3.90-5.30); RED CELL DISTRIBUTION WIDTH 20.3 % (11.0-15.5)
[2016-10-08 04:32] LABS: HEMATOCRIT 35.3 % (35.0-45.0); HEMOGLOBIN 11.4 gm/dL (12.0-16.0); MEAN CELL VOLUME 83.2 FL (83-96); MEAN CORPUSCULAR HEMOGLOBIN 26.9 PG (28-34); MEAN CORPUSCULAR HGB CONC 32.4 g/dL (30-36); MEAN PLATELET VOLUME 10.3 FL (6.5-11.5); RED BLOOD COUNT 4.25 X10e (3.90-5.30); RED CELL DISTRIBUTION WIDTH 20.8 % (11.0-15.5); WHITE BLOOD COUNT 9.8 X10e3 (4.0-10.5)
[2016-10-08 04:54] LABS: ALBUMIN SERUM 3.3 g/dL (3.5-5.0); BILIRUBIN,TOTAL 1.1 mg/dL (0.2-2.0); BUN/CREATININE RATIO 26.42; CALCIUM SERUM 6.7 mg/dL (8.4-10.2); CREATININE SERUM 1.4 mg/dL (0.6-1.4); GLOM FILT RATE Estimated 46.6 mL/min (>60); MAGNESIUM 2.2 mg/dL (1.6-3.0); POTASSIUM 3.6 mmol/L (3.5-5.1); PROTEIN TOTAL SERUM 6.3 g/dL (6.0-8.3)
[2016-10-08 18:26] LABS: HEMATOCRIT 38.3 % (35.0-45.0); MEAN CELL VOLUME 85.2 FL (83-96); MEAN CORPUSCULAR HEMOGLOBIN 26.8 PG (28-34); MEAN CORPUSCULAR HGB CONC 31.4 g/dL (30-36); MEAN PLATELET VOLUME 10.4 FL (6.5-11.5); RED BLOOD COUNT 4.49 X10e (3.90-5.30); WHITE BLOOD COUNT 11.6 X10e3 (4.0-10.5)
[2016-10-09 04:30] LABS: BUN/CREATININE RATIO 19.52; CALCIUM SERUM 6.5 mg/dL (8.4-10.2); CREATININE SERUM 2.1 mg/dL (0.6-1.4); GLOM FILT RATE Estimated 29.2 mL/min (>60)
[2016-10-10 05:33] LABS: HEMATOCRIT 37.7 % (35.0-45.0); HEMOGLOBIN 11.9 gm/dL (12.0-16.0); MEAN CELL VOLUME 84.8 FL (83-96); MEAN CORPUSCULAR HEMOGLOBIN 26.7 PG (28-34); MEAN CORPUSCULAR HGB CONC 31.5 g/dL (30-36); MEAN PLATELET VOLUME 9.7 FL (6.5-11.5); RED BLOOD COUNT 4.45 X10e (3.90-5.30); RED CELL DISTRIBUTION WIDTH 21.4 % (11.0-15.5); WHITE BLOOD COUNT 12.4 X10e3 (4.0-10.5)
[2016-10-10 06:19] LABS: ALBUMIN SERUM 3.1 g/dL (3.5-5.0); BILIRUBIN,TOTAL 0.8 mg/dL (0.2-2.0); BUN/CREATININE RATIO 18.21; CALCIUM SERUM 6.5 mg/dL (8.4-10.2); CREATININE SERUM 2.8 mg/dL (0.6-1.4); POTASSIUM 4.1 mmol/L (3.5-5.1); PROTEIN TOTAL SERUM 6.3 g/dL (6.0-8.3)
[2016-10-11 04:05] LABS: HEMATOCRIT 38.4 % (35.0-45.0); HEMOGLOBIN 12.1 gm/dL (12.0-16.0); MEAN CELL VOLUME 84.7 FL (83-96); MEAN CORPUSCULAR HEMOGLOBIN 26.6 PG (28-34); MEAN CORPUSCULAR HGB CONC 31.4 g/dL (30-36); MEAN PLATELET VOLUME 9.9 FL (6.5-11.5); RED BLOOD COUNT 4.54 X10e (3.90-5.30); RED CELL DISTRIBUTION WIDTH 21.9 % (11.0-15.5)
[2016-10-11 04:37] LABS: ALBUMIN SERUM 3.1 g/dL (3.5-5.0); BUN/CREATININE RATIO 22.69; CALCIUM SERUM 6.6 mg/dL (8.4-10.2); CREATININE SERUM 2.6 mg/dL (0.6-1.4); GLOM FILT RATE Estimated 22.8 mL/min (>60); MAGNESIUM 2.5 mg/dL (1.6-3.0); POTASSIUM 4.3 mmol/L (3.5-5.1); PROTEIN TOTAL SERUM 5.9 g/dL (6.0-8.3)
[2016-10-11 06:52] LABS: CREATININE,RANDOM URINE 316 mg/dL
[2016-10-11 06:55] LABS: SODIUM URINE RANDOM <10 mmol/L
[2016-10-12 03:38] LABS: BASOPHIL# 0.1 X10e3 (0-0.3); BASOPHIL% 0.6 % (0-2.5); EOSINOPHIL# 0.2 X10e3 (0-0.7); EOSINOPHIL% 2.3 % (0.0-7.0); HEMATOCRIT 35.3 % (35.0-45.0); HEMOGLOBIN 11.3 gm/dL (12.0-16.0); LYMPHOCYTE# 0.5 X10e3 (1.0-3.5); MEAN CELL VOLUME 83.3 FL (83-96); MEAN CORPUSCULAR HEMOGLOBIN 26.8 PG (28-34); MEAN CORPUSCULAR HGB CONC 32.2 g/dL (30-36); MEAN PLATELET VOLUME 9.5 FL (6.5-11.5); MONOCYTE# 0.7 X10e3 (0-1.0); MONOCYTE% 6.3 % (3.0-12.0); NEUTROPHIL# 9.2 X10e3 (1.5-7.1); NEUTROPHIL% 85.8 % (40-75); PLATELET COUNT 284 X10e3 (140-420); RED BLOOD COUNT 4.23 X10e (3.90-5.30); RED CELL DISTRIBUTION WIDTH 21.7 % (11.0-15.5); WHITE BLOOD COUNT 10.7 X10e3 (4.0-10.5)
[2016-10-12 03:41] LABS: DIFF IND NO
[2016-10-12 04:04] LABS: BUN/CREATININE RATIO 26.66; CALCIUM SERUM 6.3 mg/dL (8.4-10.2); CREATININE SERUM 2.1 mg/dL (0.6-1.4); GLOM FILT RATE Estimated 29.2 mL/min (>60); POTASSIUM 4.2 mmol/L (3.5-5.1)
[2016-10-13 03:37] LABS: BASOPHIL% 0.5 % (0-2.5); EOSINOPHIL# 0.3 X10e3 (0-0.7); EOSINOPHIL% 2.9 % (0.0-7.0); HEMATOCRIT 36.5 % (35.0-45.0); HEMOGLOBIN 11.7 gm/dL (12.0-16.0); LYMPHOCYTE# 0.5 X10e3 (1.0-3.5); LYMPHOCYTE% 5.6 % (17.0-45.0); MEAN CELL VOLUME 82.9 FL (83-96); MEAN CORPUSCULAR HEMOGLOBIN 26.5 PG (28-34); MEAN PLATELET VOLUME 9.3 FL (6.5-11.5); MONOCYTE# 0.7 X10e3 (0-1.0); MONOCYTE% 7.2 % (3.0-12.0); NEUTROPHIL# 7.9 X10e3 (1.5-7.1); NEUTROPHIL% 83.8 % (40-75); PLATELET COUNT 279 X10e3 (140-420); RED BLOOD COUNT 4.41 X10e (3.90-5.30); RED CELL DISTRIBUTION WIDTH 21.7 % (11.0-15.5); WHITE BLOOD COUNT 9.4 X10e3 (4.0-10.5)
[2016-10-13 03:41] LABS: DIFF IND NO
[2016-10-13 03:54] LABS: BUN/CREATININE RATIO 31.25; CALCIUM SERUM 6.3 mg/dL (8.4-10.2); CREATININE SERUM 1.6 mg/dL (0.6-1.4); MAGNESIUM 2.4 mg/dL (1.6-3.0); POTASSIUM 4.1 mmol/L (3.5-5.1)
[2016-10-13] MEDS ORDERED: CATAPRES0.1 MG PO (15:34)
[2016-10-13] MEDS ORDERED: [UNRECOGNIZED DRUG - OTHER] PO (15:35)
[2016-10-13] MEDS ORDERED: CALCITRIOL0.25 MC1 PO (15:36)
[2016-10-13] MEDS ORDERED: FOLIC ACID1 MG PO (15:37)
[2016-10-13] MEDS ORDERED: ACCU-CHEK1 COMB.PKG (15:37)
[2016-10-13] MEDS ORDERED: NOVOLOG100 U/M1 (15:38)
[2016-10-13] MEDS ORDERED: VITAMIN D2000 UNIT PO (15:38)
[2016-10-13] MEDS ORDERED: FLORASTORKIDS250 MG PO (15:39)
[2016-10-13] MEDS ORDERED: LANTUS100 U/ML SUBQ (15:40)
[2016-10-13] MEDS ORDERED: LOMOTIL WHITE2.5 MG PO (15:41)
[2016-10-13] MEDS ORDERED: BUSPAR15 MG PO (15:42)
[2016-10-13] MEDS ORDERED: SODIUM BICARBO650 MG PO (16:01)
[2016-10-13] MEDS ORDERED: CYMBALTA30 MG PO (16:01)
== END 2016-10-13 18:30 | disposition home or self-care (01) | DRG 330 ==
LOC: C3A PCU 15:50 → C4C 09-29 16:00
PROVIDERS: Family Medicine; Internal Medicine; Internal Medicine Gastroenterology; Internal Medicine Hematology; Internal Medicine Nephrology; Physician Assistant Medical; Specialist; Surgery
PROC: 30233N1 Transfusion of Nonautologous Red Blood Cells into Peripheral Vein, Percutaneous Approach (ICD-10-PCS; 2016-09-25)
PROC: 30233N1 Transfusion of Nonautologous Red Blood Cells into Peripheral Vein, Percutaneous Approach (ICD-10-PCS; 2016-09-26)
PROC: 0DB68ZX Excision of Stomach, Via Natural or Artificial Opening Endoscopic, Diagnostic (ICD-10-PCS; 2016-09-27 10:00)
PROC: 0DBK8ZX Excision of Ascending Colon, Via Natural or Artificial Opening Endoscopic, Diagnostic (ICD-10-PCS; 2016-09-27 10:00)
PROC: 0DBL8ZX Excision of Transverse Colon, Via Natural or Artificial Opening Endoscopic, Diagnostic (ICD-10-PCS; 2016-09-27 10:00)
PROC: 0DTF0ZZ Resection of Right Large Intestine, Open Approach (ICD-10-PCS; principal; 2016-09-29 11:00)
PROC: 30233N1 Transfusion of Nonautologous Red Blood Cells into Peripheral Vein, Percutaneous Approach (ICD-10-PCS; 2016-10-01)
PROC: 30233N1 Transfusion of Nonautologous Red Blood Cells into Peripheral Vein, Percutaneous Approach (ICD-10-PCS; 2016-10-02)
PROC: 30233K1 Transfusion of Nonautologous Frozen Plasma into Peripheral Vein, Percutaneous Approach (ICD-10-PCS; 2016-10-02)
PROC: 30233K1 Transfusion of Nonautologous Frozen Plasma into Peripheral Vein, Percutaneous Approach (ICD-10-PCS; 2016-10-03)
PROC: 30233N1 Transfusion of Nonautologous Red Blood Cells into Peripheral Vein, Percutaneous Approach (ICD-10-PCS; 2016-10-03)
PROC: B24BZZZ Ultrasonography of Heart with Aorta (ICD-10-PCS; 2016-10-08)
DX: C18.2 Malignant neoplasm of ascending colon (principal); N17.9 Acute kidney failure, unspecified; J96.10 Chronic respiratory failure, unspecified whether with hypoxia or hypercapnia; K91.2 Postsurgical malabsorption, not elsewhere classified; E11.22 Type 2 diabetes mellitus with diabetic chronic kidney disease; I27.2 Other secondary pulmonary hypertension; E87.1 Hypo-osmolality and hyponatremia; D62 Acute posthemorrhagic anemia; G25.81 Restless legs syndrome; G47.33 Obstructive sleep apnea (adult) (pediatric); K21.9 Gastro-esophageal reflux disease without esophagitis; D50.9 Iron deficiency anemia, unspecified; Z80.7 Family history of other malignant neoplasms of lymphoid, hematopoietic and related tissues; I12.9 Hypertensive chronic kidney disease with stage 1 through stage 4 chronic kidney disease, or unspecified chronic kidney disease; N18.3 Chronic kidney disease, stage 3 (moderate); Z79.4 Long term (current) use of insulin; M19.90 Unspecified osteoarthritis, unspecified site; Z87.891 Personal history of nicotine dependence; R13.10 Dysphagia, unspecified; R19.7 Diarrhea, unspecified; E83.51 Hypocalcemia
CPT/HCPCS: 71020; 74176; 80048; 80053; 81003; 82088; 82378; 82550; 82553; 82570; 82607; 82728; 82746; 82947; 83036; 83540; 83550; 83735; 84100; 84132; 84244; 84300; 84443; 84484; 85014; 85018; 85025; 85027; 85610; 85730; 86301; 86850; 86900; 86901; 86923; 87077; 87086; 87493; 88305; 88309; 88341; 88342; 89190; 92526; 92610; 93005; 93306; 94010; 97110; 97116; 97162; 97166; 97168; 97530; 97535; C9113; G8978-GP; G8979-GP; G8987-GO; G8988-GO; G8996-GN; G8997-GN; J0330; J0360; J0610; J0696; J1170; J1644; J1815; J1940; J2060; J2250; J2270; J2405; J2710; J2916; J3010; J3430; J3475; P9016; P9059